=== PATIENT | female | born 1955 | race American Indian/Alaskan Native ===

== ENCOUNTER 2022-04-05 21:45 | Inpatient (IN) | payer MEDICARE ==
[2022-04-05] MEDS ORDERED: IPRATROPIUM 0.02% NEBU 2.5 ML IH ONE ×2 (22:46→22:58)
[2022-04-05] MEDS ORDERED: ALBUTEROL 2.5 MG/3 ML NEBU IH ONE ×2 (22:46→22:56)
[2022-04-05] MEDS ORDERED: MAGNESIUM SULFATE 2 GM/50 ML BAG IV ONE (23:03)
[2022-04-05] MEDS ORDERED: methylPREDNISolone Sod Succinate 125 MG/2 ML INJ IV ONE (23:03)
--- NOTE | 2022-04-05 23:08 | Emergency Department Report ---
ED Shortness of Breath HPI - General Chief Complaint: Dyspnea/Respdistress Stated Complaint: COPD/PRINCESS Time Seen by Provider: 04/05/22 23:00 Source: patient, EMS Mode of arrival: Stretcher Limitations: No Limitations - History of Present Illness Initial Comments: Patient is 66 years old female with history of COPD on oxygen at home 2 L. Patient brought to the emergency room via EMS for evaluation of shortness of breath and difficulty breathing since yesterday. Patient also reported chills but no fever. She denies any chest pain. Patient denied any abdominal pain, nausea or vomiting. Patient found to have an oxygen saturation of 88% on a nonrebreather. Patient improved to 98% after albuterol and Atrovent treatment. MD Complaint: shortness of breath, cough - Related Data Allergies Allergy/AdvReac Type Severity Reaction Status Date / Time aspirin Allergy Hives Verified 04/05/22 22:32 doxycycline Allergy Hives Verified 04/05/22 22:32 Iodinated Contrast Media Allergy Hives Verified 04/05/22 22:32 Penicillins Allergy Hives Verified 04/05/22 22:32 pravastatin Allergy Hives Verified 04/05/22 22:32 Sulfa (Sulfonamide Allergy Hives Verified 04/05/22 22:32 Antibiotics) sulfur hexafluoride Allergy Unknown Verified 04/05/22 22:32 microspheres [From Lum[facility]] ED Review of Systems ROS: Stated complaint: COPD/PRINCESS Other details as noted in HPI Comment: All other systems reviewed and negative Constitutional: chills. denies: fever Respiratory: cough, shortness of breath, SOB with exertion, SOB at rest, wheezing Cardiovascular: denies: chest pain, palpitations Gastrointestinal: denies: abdominal pain, nausea, vomiting, diarrhea Neurological: denies: headache, weakness, numbness, paresthesias, confusion ED Past Medical Hx - Social History Smoking Status: Never Smoker Substance Use Type: None ED Physical Exam - General Limitations: No Limitations General appearance: alert, in distress - Head Head exam: Present: atraumatic, normocephalic, normal inspection - Eye Eye exam: Present: normal appearance - ENT ENT exam: Present: normal exam, normal orophraynx, mucous membranes moist - Neck Neck exam: Present: normal inspection, full ROM. Absent: tenderness, meningismus - Respiratory Respiratory exam: Present: respiratory distress, wheezes, rales, rhonchi, decre ased breath sounds. Absent: accessory muscle use, prolonged expiratory - Cardiovascular Cardiovascular Exam: Present: regular rate, normal rhythm, normal heart sounds - GI/Abdominal GI/Abdominal exam: Present: soft, normal bowel sounds. Absent: distended, tenderness, guarding, rebound, rigid, organomegaly, mass, bruit, pulsatile mass, hernia - Extremities Exam Extremities exam: Present: normal inspection, full ROM, normal capillary refill. Absent: pedal edema, calf tenderness - Back Exam Back exam: Present: normal inspection, full ROM. Absent: CVA tenderness (R), CVA tenderness (L) - Neurological Exam Neurological exam: Present: alert, oriented X3, CN II-XII intact, normal gait, reflexes normal. Absent: motor sensory deficit - Psychiatric Psychiatric exam: Present: normal mood - Skin Skin exam: Present: warm, intact, normal color ED Course Vital Signs 04/05/22 04/05/22 04/05/22 22:33 22:37 22:54 Temperature 97.8 F Pulse Rate 79 Pulse Rate [ 80 84 Bilateral] Respiratory 24 Rate Respiratory 24 28 H Rate [Bilateral ] Blood Pressure 179/59 O2 Sat by Pulse 93 Oximetry 04/05/22 04/05/22 04/05/22 22:57 22:59 23:01 Temperature Pulse Rate 80 79 Pulse Rate [ Bilateral] Respiratory 17 20 Rate Respiratory Rate [Bilateral ] Blood Pressure 157/49 O2 Sat by Pulse 96 100 95 Oximetry 04/05/22 04/05/22 04/06/22 23:30 23:33 00:01 Temperature Pulse Rate 79 77 81 Pulse Rate [ Bilateral] Respiratory 17 20 20 Rate Respiratory Rate [Bilateral ] Blood Pressure 143/67 143/67 130/58 O2 Sat by Pulse 86 91 91 Oximetry 04/06/22 00:31 Temperature Pulse Rate 84 Pulse Rate [ Bilateral] Respiratory 24 Rate Respiratory Rate [Bilateral ] Blood Pressure 152/73 O2 Sat by Pulse 89 Oximetry ED Medical Decision Making - Lab Data Result diagrams: 04/05/22 23:20 04/05/22 23:20 - EKG Data -: EKG Interpreted by [place] - Radiology Data Radiology results: report reviewed - Medical Decision Making Patient is 66 years old female with history of COPD on oxygen at home 2 L. Patient brought to the emergency room via EMS for evaluation of shortness of breath and difficulty breathing since yesterday. Patient also reported chills but no fever. She denies any chest pain. Patient denied any abdominal pain, nausea or vomiting. Patient found to have an oxygen saturation of 88% on a nonrebreather. Patient improved to 98% after albuterol and Atrovent treatment. Patient received albuterol, Atrovent, Solu-Medrol and magnesium sulfate. Patient also received Lasix 60 IV. Chest x-ray showed pulmonary edema. Labs reviewed and showed a BNP of 5555. I discussed the patient with Dr. Rivas, he agreed to admit the patient to the medical service for further management. Critical Care Time: Yes Critical care time in (mins) excluding proc time.: 35 Critical care attestation.: If time is entered above; I have spent that time in minutes in the direct care of this critically ill patient, excluding procedure time. ED Disposition Clinical Impression: Acute exacerbation of CHF (congestive heart failure), Acute exacerbation of COPD with asthma Disposition: 09 ADMITTED INPATIENT Is pt being admited?: Yes Condition: Stable
[2022-04-05 23:37] LABS: Hematocrit 24.1 % (30.3-42.9); Hemoglobin 7.7 gm/dl (10.1-14.3); Mean Corpuscular HGB Conc 32 % (30-34); Mean Corpuscular Volume 93 fl (79-97); Platelet Count 194 K/mm3 (140-440); Red Blood Count 2.58 M/mm3 (3.65-5.03); Red Cell Distribution Width 18.4 % (13.2-15.2)
--- NOTE | 2022-04-05 23:45 | XRay Report ---
CHEST 1 VIEW INDICATION / CLINICAL INFORMATION: Dyspnea. COMPARISON: None available. FINDINGS: SUPPORT DEVICES: None. HEART / MEDIASTINUM: Mild cardiomegaly. LUNGS / PLEURA: Underpenetrated study with central vascular prominence and bilateral interstitial str anding in the perihilar regions more prevalent on the left. Bilateral hemidiaphragms are partially in distinct. BONES: No significant osseous abnormality. ADDITIONAL FINDINGS: No significant additional findings. IMPRESSION: 1. Mild CHF not excluded. Signer Name: Uriel Purcell II, MD Signed: 04/05/2022 11:40 PM Workstation Name: [id number]
[2022-04-05 23:48] LABS: INR 1.03 (0.87-1.13)
[2022-04-05 23:49] LABS: Partial Thromboplastin Time 27.5 Sec. (24.2-36.6)
[2022-04-05 23:59] LABS: Alanine Aminotransferase 21 units/L (7-56); Albumin 3.9 g/dL (3.9-5)
[2022-04-06 00:10] LABS: Bilirubin,Direct < 0.2 mg/dL (0-0.2); Calcium 9.1 mg/dL (8.4-10.2)
[2022-04-06] MEDS ORDERED: FUROSEMIDE 40 MG/4 ML INJ IV ONE (00:59)
[2022-04-06] MEDS ORDERED: MORPHINE 4 MG/1 ML INJ IV PRN (01:59)
[2022-04-06] MEDS ORDERED: MORPHINE 2 MG/1 ML INJ IV PRN (01:59)
[2022-04-06] MEDS ORDERED: ALBUTEROL 2.5 MG/3 ML NEBU IH PRN (01:59)
[2022-04-06] MEDS ORDERED: ONDANSETRON 4 MG/2 ML INJ IV PRN (01:59)
[2022-04-06] MEDS ORDERED: ACETAMINOPHEN 325 MG TAB PO PRN (01:59)
--- NOTE | 2022-04-06 02:06 | History and Physical Report ---
History of Present Illness Date of examination: 04/06/22 Date of admission: 04/06/22 Chief complaint: Shortness of breath Respiratory distress History of present illness: 66 years old female with history of COPD on oxygen at home 2 L was brought to the emergency room via EMS for evaluation of shortness of breath and difficulty breathing since yesterday. Patient also reported chills but no fever. She denies any chest pain. Patient denied any abdominal pain, nausea or vomiting. Patient found to have an oxygen saturation of 88% on a nonrebreather. Patient improved to 98% after albuterol and Atrovent treatment. In the emergency room patient is found to have acute CHF exacerbation and COPD exacerbation. Patient proBNP is 5551. Chest x-ray shows CHF. Also patient BUN is 26 creatinine 2.1 so going to admit the patient and put the patient on CHF pathway Past History Past Medical History: COPD, hypertension Past Surgical History: No surgical history Social history: no significant social history Family history: hypertension Medications and Allergies Allergies Allergy/AdvReac Type Severity Reaction Status Date / Time aspirin Allergy Hives Verified 04/05/22 22:32 doxycycline Allergy Hives Verified 04/05/22 22:32 Iodinated Contrast Media Allergy Hives Verified 04/05/22 22:32 Penicillins Allergy Hives Verified 04/05/22 22:32 pravastatin Allergy Hives Verified 04/05/22 22:32 Sulfa (Sulfonamide Allergy Hives Verified 04/05/22 22:32 Antibiotics) sulfur hexafluoride Allergy Unknown Verified 04/05/22 22:32 microspheres [From Lumason] Review of Systems All systems: negative Cardiovascular: orthopnea, shortness of breath, dyspnea on exertion Respiratory: shortness of breath, dyspnea on exertion Exam - Constitutional Vitals: Temp Pulse Resp BP Pulse Ox 97.8 F 81 20 138/78 94 04/05/22 22:33 04/06/22 01:31 04/06/22 01:31 04/06/22 01:31 04/06/22 01:31 - Respiratory Respiratory: bilateral: rales HEART Score - HEART Score Troponin: Troponin T 0.019 ng/mL (0.00-0.029) 04/05/22 23:20 Results - Labs CBC & Chem 7: 04/05/22 23:20 04/05/22 23:20 Labs: Laboratory Last Values WBC 7.0 K/mm3 (4.5-11.0) 04/05/22 23:20 RBC 2.58 M/mm3 (3.65-5.03) L 04/05/22 23:20 Hgb 7.7 gm/dl (10.1-14.3) L 04/05/22 23:20 Hct 24.1 % (30.3-42.9) L 04/05/22 23:20 MCV 93 fl (79-97) 04/05/22 23:20 MCH 30 pg (28-32) 04/05/22 23:20 MCHC 32 % (30-34) 04/05/22 23:20 RDW 18.4 % (13.2-15.2) H 04/05/22 23:20 Plt Count 194 K/mm3 (140-440) 04/05/22 23:20 Seg Neutrophils % Clinical Geneticist 04/05/22 23:20 PT 14.7 Sec. (12.2-14.9) 04/05/22 23:20 INR 1.03 (0.87-1.13) 04/05/22 23:20 APTT 27.5 Sec. (24.2-36.6) 04/05/22 23:20 Sodium 138 mmol/L (137-145) 04/05/22 23:20 Potassium 5.0 mmol/L (3.6-5.0) 04/05/22 23:20 Chloride 103.4 mmol/L (98-107) 04/05/22 23:20 Carbon Dioxide 22 mmol/L (22-30) 04/05/22 23:20 Anion Gap 18 mmol/L 04/05/22 23:20 BUN 26 mg/dL (7-17) H 04/05/22 23:20 Creatinine 2.1 mg/dL (0.6-1.2) H 04/05/22 23:20 Estimated GFR 23 ml/min 04/05/22 23:20 BUN/Creatinine Ratio 12 % 04/05/22 23:20 Glucose 277 mg/dL (65-100) H 04/05/22 23:20 Lactic Acid 0.90 mmol/L (0.7-2.0) 04/05/22 23:20 Calcium 9.1 mg/dL (8.4-10.2) 05/31/22 23:20 Total Bilirubin 0.60 mg/dL (0.1-1.2) 04/05/22 23:20 Direct Bilirubin < 0.2 mg/dL (0-0.2) 04/05/22 23:20 Indirect Bilirubin 0.4 mg/dL 04/05/22 23:20 AST 13 units/L (5-40) 04/05/22 23:20 ALT 21 units/L (7-56) 04/05/22 23:20 Alkaline Phosphatase 64 units/L (35-129) 04/05/22 23:20 Troponin T 0.019 ng/mL (0.00-0.029) 04/05/22 23:20 NT-Pro-B Natriuret Pep 5551 pg/mL (0-900) H 04/05/22 23:20 Total Protein 6.5 g/dL (6.3-8.2) 04/05/22 23:20 Albumin 3.9 g/dL (3.9-5) 04/05/22 23:20 Albumin/Globulin Ratio 1.5 % 04/05/22 23:20 - Imaging and Cardiology Chest x-ray: report reviewed Assessment and Plan VTE prophylaxis?: Chemical Plan of care discussed with patient/family: Yes - Patient Problems (1) Acute exacerbation of CHF (congestive heart failure) Status: Acute Plan to address problem: Admit the patient to the medical telemetry. Oxygen via nasal cannula 3 L/min. DuoNeb by nebulizer every 4 hours. Fluid restriction. Daily weight. Lasix 40 mg IV daily. Maintain input output. Echocardiogram. Consult cardiology if needed (2) Acute exacerbation of COPD with asthma Status: Acute Plan to address problem: Oxygen via nasal cannula 3 L/min. DuoNeb by nebulizer every 4 hours. Albuterol via nebulizer every 4 hours as needed (3) Hypertension Status: Acute Plan to address problem: Hydralazine 10 mg IV every 6 hours as needed. We continue the home medication (4) JESSICA (acute kidney injury) Status: Acute Plan to address problem: Avoid nephrotoxic drug. Renally dose medication. We consulted nephrology for evaluation. Recheck BMP in the morning (5) DVT prophylaxis Status: Acute Plan to address problem: Heparin 5000 units subcu every 12 hours for DVT prophylaxis Pepcid 20 mg IV every 12 hours for GI prophylaxis. Patient is a full code
[2022-04-06 02:50] LABS: Basophils % (Manual) 0 % (0.0-1.8); Eosinophils % (Manual) 0 % (0.0-4.3); Monocytes % (Manual) 0 % (0.0-7.3); Total Cells Counted 100
[2022-04-06 02:51] LABS: Anisocytosis 1+; Hypochromasia 1+
[2022-04-06 02:52] LABS: Crenated RBC Few; Ovalocytes Few
[2022-04-06 02:53] LABS: Platelet Estimate Consistent w Auto
[2022-04-06] MEDS ORDERED: IPRATROPIUM 0.02% NEBU 2.5 ML IH ONE (03:13)
[2022-04-06] MEDS: IPRATROPIUM/ALBUTEROL SULFATE 3 ML AMPUL.NEB IH SCH ×4 (03:15→20:34)
[2022-04-06] MEDS ORDERED: FUROSEMIDE 40 MG/4 ML INJ IV SCH ×2 (06:00→10:00)
[2022-04-06 08:31] LABS: Iron 20 ug/dL (37-170); Total Iron Binding Capacity 200 mcg/dL (250-450)
[2022-04-06] MEDS: HEPARIN 5,000 UNIT/1 ML VIAL SUB-Q SCH ×2 (09:04→21:35)
[2022-04-06] MEDS: FAMOTIDINE 20 MG/2 ML INJ IV SCH (09:04)
[2022-04-06] MEDS: amLODIPine 10 MG TAB PO SCH (09:05)
[2022-04-06] MEDS: hydrALAZINE 20 MG/1 ML INJ IV PRN (09:08)
--- NOTE | 2022-04-06 09:08 | Electrocardiograph Report ---
[facility] Test Date: 2022-04-06 Test Time: 01:18:24 Pat Name: CHAPARRITA LOPEZ Department: Room: A459 1 Gender: F Nursing Associate: HARRISON : 1955 Requested By: CELIO GARG Order Number: [id number] Reading MD: Lonnie Szymanski Measurements Intervals [place] Rate: 81 P: 33 AK: 132 QRS: 50 QRSD: 72 T: QT: 432 QTc: 505 Interpretive Statements Sinus rhythm Multiple ventricular premature complexes Probable left atrial enlargement No previous ECG available for comparison Electronically Signed On 04-06-2022 9:07:52 EDT by Lonnie Szymanski
--- NOTE | 2022-04-06 11:06 | Event Note ---
Date: 04/06/22 Patient was evaluated this morning, she was found to be hemodynamically stable. #Acute on chronic heart failure - Continue CHF exacerbation protocol: Telemetry, Strict I/O, monitor urine output every shift, daily weights, afterload reduction, low-sodium diet, and fluid restriction of approximately 1.5 mL/day, IV Lasix 40 mg daily (reduced in the setting of JESSICA) - Supplemental oxygen: 3 L nasal cannula - ProBNP on admission: 5551 - Pending TTE to evaluate EF/cardiac function - Continue to monitor #Acute COPD exacerbationruled out Patient denies increased sputum, change in sputum color, and she endorses being compliant with her medications #Acute on chronic hypoxic respiratory failureimproving - etiology: Likely secondary to acute heart failure exacerbation - baseline oxygen requirements: 2 L nasal cannula - supplemental oxygen: 3 L nasal cannula - Continue protocol: continue pulse oximetry, wean oxygen as tolerated, ordered incentive spirometry and educated patient on how to use it and its importance. Pending coronavirus PCR to rule out possible infectious etiology - Walk test: Can perform closer to discharge - continue to monitor #JESSICA on possible CKD stage 4 secondary to vasomotor nephropathy Creatinine 2.1 (baseline unknown). Patient endorses being referred to a fish liver sorter after her most recent hospitalization at [facility]. Likely secondary to cardiorenal syndrome Holding PASQUALE inhibitor's, ARB's, and nephrotoxic drugs. Renally dose meds. Consider nephrology consult if creatinine worsens. Continue to monitor. #Hypertension - home medications: Unknown - current medications: Amlodipine 10 mg daily - SBP goal <160 and DBP goal <90 while inpatient - continue to monitor #Iron deficiency anemia Hemoglobin 7.7 Iron 20, TIBC 200, ferritin 324.8. Will initiate IV iron repletion x2 after resolution of heart failure exacerbation. We will refer patient to general farmworker for possible colonoscopy upon discharge. #Morbid obesity #Weight loss counseling #Exercise counseling - BMI 35.4 - Counseled patient on the importance of weight loss, incorporating exercise, and dietary changes (lean meats, fresh fruits and vegetables, and water intake). Patient expresses understanding. - Time: +15 min #Coordination of CARE time: 30 minutes. Total visit time equals 30 or more minutes with greater than 50% spent [id number] on coordination of care and counseling. #Advanced care planning -Disease education conducted, care plan discussed, diagnoses discussed, prognosis discussed, and patient acknowledges understanding with care plan -Time: +30 min
--- NOTE | 2022-04-06 12:34 | Consultation ---
History of Present Illness - Reason for Consult Consult date: 04/06/22 acute renal failure - History of Present Illness This is a 66 year old female who presented to the hospital with a chief co mplaint of shortness of breath. Patient was found to be Hypoxic with oxygen levels in the 80's. CXR done showed CHF changes. Patient was admitted for CHF and COPD management. Serum creatinine on admission was 2.1. Baseline serum creatinine unknown. We are being consulted for management of this patient's ARF. Patient currently off floor in testing and therefore was not seen. Past History Past Medical History: COPD, hypertension Past Surgical History: No surgical history Social history: no significant social history Family history: hypertension Medications and Allergies Allergies Allergy/AdvReac Type Severity Reaction Status Date / Time aspirin Allergy Hives Verified 04/05/22 22:32 doxycycline Allergy Hives Verified 04/05/22 22:32 Iodinated Contrast Media Allergy Hives Verified 04/05/22 22:32 Penicillins Allergy Hives Verified 04/05/22 22:32 pravastatin Allergy Hives Verified 04/05/22 22:32 Sulfa (Sulfonamide Allergy Hives Verified 04/05/22 22:32 Antibiotics) sulfur hexafluoride Allergy Unknown Verified 04/05/22 22:32 microspheres [From [facility]] Active Meds: Active Medications Acetaminophen (Acetaminophen 325 Mg Tab) 650 mg PO Q4H PRN PRN Reason: Pain MILD(1-3)/Fever >100.5/HUBER Albuterol (Albuterol 2.5 Mg/3 Ml Nebu) 2.5 mg IH Q3HRT PRN PRN Reason: Shortness Of Breath Albuterol/Ipratropium (Ipratropium/Albuterol Sulfate 3 Ml Ampul.Neb) 1 ampul IH Q6HRT [facility] Last Admin: 04/06/22 09:02 Dose: 1 ampul Amlodipine Besylate (Amlodipine 10 Mg Tab) 10 mg PO QDAY [facility] Last Admin: 04/06/22 09:05 Dose: 10 mg Famotidine (Famotidine 20 Mg/2 Ml Inj) 20 mg IV QAM [facility] Last Admin: 04/06/22 09:04 Dose: 20 mg Furosemide (Furosemide 40 Mg/4 Ml Inj) 40 mg IV QDAY [facility] Last Admin: 04/06/22 09:04 Dose: 40 mg Heparin Sodium (Porcine) (Heparin 5,000 Unit/1 Ml Vial) 5,000 unit SUB-Q Q12HR [facility] Last Admin: 04/06/22 09:04 Dose: 5,000 unit Hydralazine HCl (Hydralazine 20 Mg/1 Ml Inj) 10 mg IV Q6H PRN PRN Reason: Blood Pressure Last Admin: 04/06/22 09:08 Dose: 10 mg Morphine Sulfate (Morphine 2 Mg/1 Ml Inj) 2 mg IV Q4H PRN PRN Reason: Pain, Moderate (4-6) Morphine Sulfate (Morphine 4 Mg/1 Ml Inj) 4 mg IV Q4H PRN PRN Reason: Pain , Severe (7-10) Ondansetron HCl (Ondansetron 4 Mg/2 Ml Inj) 4 mg IV Q8H PRN PRN Reason: Nausea And Vomiting Sodium Chloride (Sodium Chloride 0.9% 10 Ml Flush Syringe) 10 ml IV BID [facility] Last Admin: 04/06/22 09:09 Dose: 10 ml Sodium Chloride (Sodium Chloride 0.9% 10 Ml Flush Syringe) 10 ml IV PRN PRN PRN Reason: LINE FLUSH Exam - Vital Signs Vital signs: Vital Signs Temp Pulse Resp BP Pulse Ox 97.8 F 79 24 179/59 93 04/05/22 22:33 04/05/22 22:33 04/05/22 22:33 04/05/22 22:33 04/05/22 22:33 Results - Lab Results 04/05/22 23:20 04/05/22 23:20 Most recent lab results Calcium 9.1 mg/dL (8.4-10.2) 04/05/22 23:20 Assessment and Plan Assessment: Acute Renal Failure, questionable underlying CKD CHF COPD Anemia Plan: No new renal labs noted for today. Serum creatinine 2.1 yesterday. Baseline serum creatinine unknown. Obtain renal ultrasound to rule out obstruction Obtain urine lytes, protein and eosinophils CHF- On Lasix 40 mg IV QD. Echo today. Iron is low at 20, start Ferrous Gluconate 324 mg po TID Avoid nephrotoxic agents Obtain daily weights Monitor I/O's daily Monitor renal function closely Plan of care reviewed by Dr. Mejia
[2022-04-06] MEDS: FERROUS GLUCONATE 324 MG TAB PO SCH ×2 (15:36→22:09)
[2022-04-06] MEDS: INSULIN LISPRO 100 UNIT/ML SUB-Q SCH (23:17)
[2022-04-07] MEDS: IPRATROPIUM/ALBUTEROL SULFATE 3 ML AMPUL.NEB IH SCH ×4 (02:21→20:40)
[2022-04-07 04:55] LABS: Basophils # (Auto) 0.1 K/mm3 (0.0-0.1); Basophils % (Auto) 0.6 % (0.0-1.8); Eosinophils # (Auto) 0.1 K/mm3 (0.0-0.4); Eosinophils % (Auto) 1.3 % (0.0-4.3); Hematocrit 22.3 % (30.3-42.9); Hemoglobin 7.2 gm/dl (10.1-14.3); Lymphocytes # (Auto) 1.1 K/mm3 (1.2-5.4); Lymphocytes % (Auto) 13.3 % (13.4-35.0); Mean Corpuscular HGB Conc 32 % (30-34); Mean Corpuscular Volume 92 fl (79-97); Monocytes # (Auto) 0.7 K/mm3 (0.0-0.8); Platelet Count 195 K/mm3 (140-440); Red Blood Count 2.43 M/mm3 (3.65-5.03); Red Cell Distribution Width 18.5 % (13.2-15.2)
[2022-04-07 05:06] LABS: Calcium 9.1 mg/dL (8.4-10.2)
[2022-04-07] MEDS ORDERED: SODIUM FERRIC GLUCON/SUCRO 125 MG in SODIUM CHLORIDE 0.9% 100 ML IV ONE (08:30)
--- NOTE | 2022-04-07 09:05 | Progress Note ---
Assessment and Plan Acute Renal Failure, questionable underlying CKD CHF COPD Anemia Plan: slowly rising Cr, no UOP was recorded Baseline serum creatinine unknown. Obtain renal ultrasound to rule out obstruction-pending Obtain urine lytes, protein and eosinophils-pending Iron is low at 20, cont Ferrous Gluconate 324 mg po TID Avoid nephrotoxic agents Obtain daily weights Monitor I/O's daily Monitor renal function closely Subjective Date of service: 04/07/22 Principal diagnosis: renal failure Interval history: no overnight events, remains on oxygen Objective - Vital Signs Vital signs: Vital Signs - 12hr 04/07/22 04/07/22 04/07/22 00:59 02:00 04:26 Temperature 98.7 F Pulse Rate 71 Pulse Rate [ 72 Bilateral] Respiratory 20 Rate Respiratory 20 Rate [Bilateral ] Blood Pressure 159/50 O2 Sat by Pulse 91 92 Oximetry 04/07/22 04/07/22 07:36 08:08 Temperature 98.6 F Pulse Rate 66 Pulse Rate [ Bilateral] Respiratory 18 Rate Respiratory Rate [Bilateral ] Blood Pressure 143/47 O2 Sat by Pulse 90 93 Oximetry - General Appearance General appearance: well-developed, well-nourished EENT: ATNC, PERRL Respiratory: Present: Decreased Breath Sounds Cardiology: regular, S1S2 Gastrointestinal: normal Integumentary: no rash Neurologic: no focal deficit, no asterixis Musculoskeletal: other (edema in BLE) Psychiatric: cooperative - Lab 04/07/22 04:12 04/07/22 04:12 Most recent lab results Calcium 9.1 mg/dL (8.4-10.2) 04/07/22 04:12 Phosphorus 4.10 mg/dL (2.5-4.5) 04/07/22 04:12 Medications & Allergies - Medications Allergies/Adverse Reactions: Allergies aspirin Allergy (Verified 04/05/22 22:32) Hives doxycycline Allergy (Verified 04/05/22 22:32) Hives Iodinated Contrast Media Allergy (Verified 04/05/22 22:32) Hives Penicillins Allergy (Verified 04/05/22 22:32) Hives pravastatin Allergy (Verified 04/05/22 22:32) Hives Sulfa (Sulfonamide Antibiotics) Allergy (Verified 04/05/22 22:32) Hives sulfur hexafluoride microspheres [From [facility]] Allergy (Verified 04/05/22 22:32) Unknown Home Medications: Home Medications Medication Instructions Recorded Confirmed Last Taken Type Clopidogrel [Plavix] 75 mg PO QDAY 04/06/22 04/07/22 Unknown History Escitalopram [Lexapro] 10 mg PO DAILY 04/06/22 04/07/22 Unknown History ISOSORBIDE MONOnitrate [Imdur ER] 30 mg PO DAILY 04/06/22 04/07/22 Unknown History Montelukast [Singulair] 10 mg PO HS 04/06/22 04/07/22 Unknown History NIFEdipine [Nifedipine ER] 90 mg PO DAILY 04/06/22 04/07/22 Unknown History Topiramate [Topamax] 25 mg PO DAILY 04/06/22 04/07/22 Unknown History hydrALAZINE [Apresoline TAB] 100 mg PO DAILY 04/06/22 04/07/22 Unknown History Albuterol Mdi (or & Nicu Only) 2 puff IH QID PRN 04/07/22 04/07/22 Unknown History [ProAir HFA Inhaler] Insulin Degludec [Tresiba 36 units SQ QHS 04/07/22 04/07/22 Unknown History Flextouch U-100] Active Medications: Generic Name Dose Route Start Last Admin Trade Name Freq PRN Reason Stop Dose Admin Acetaminophen 650 mg 04/06/22 01:59 Acetaminophen 325 Mg Tab PO Q4H PRN Pain MILD(1-3)/Fever >100.5/HUBER Albuterol 2.5 mg 04/06/22 01:59 Albuterol 2.5 Mg/3 Ml Nebu IH Q3HRT PRN Shortness Of Breath Albuterol/Ipratropium 1 ampul 04/06/22 02:00 04/07/22 08:08 Ipratropium/Albuterol Sulfate 3 Ml Ampul.Neb IH 1 ampul Q6HRT DENISE Administration Amlodipine Besylate 10 mg 04/06/22 10:00 04/06/22 09:05 Amlodipine 10 Mg Tab PO 10 mg QDAY DENISE Administration Famotidine 20 mg 04/06/22 10:00 04/06/22 09:04 Famotidine 20 Mg/2 Ml Inj IV 20 mg QAM DENISE Administration Heparin Sodium (Porcine) 5,000 unit 04/07/22 08:00 Heparin 5,000 Unit/1 Ml Vial SUB-Q Q8HR [facility] Hydralazine HCl 10 mg 04/06/22 02:08 04/06/22 09:08 Hydralazine 20 Mg/1 Ml Inj IV 10 mg Q6H PRN Administration Blood Pressure Ferric Sodium Gluconate 110 mls @ 100 mls/hr 04/07/22 08:30 Complex 125 mg/ Sodium IV 04/07/22 09:35 Chloride ONCE ONE Insulin Human Lispro 0 unit 04/06/22 23:15 04/06/22 23:17 Insulin Lispro 100 Unit/Ml SUB-Q 6 unit ACHS DENISE Administration Protocol Morphine Sulfate 2 mg 04/06/22 01:59 Morphine 2 Mg/1 Ml Inj IV Q4H PRN Pain, Moderate (4-6) Morphine Sulfate 4 mg 04/06/22 01:59 Morphine 4 Mg/1 Ml Inj IV Q4H PRN Pain , Severe (7-10) Ondansetron HCl 4 mg 04/06/22 01:59 Ondansetron 4 Mg/2 Ml Inj IV Q8H PRN Nausea And Vomiting Sodium Chloride 10 ml 04/06/22 10:00 04/06/22 21:35 Sodium Chloride 0.9% 10 Ml Flush Syringe IV 10 ml BID DENISE Administration Sodium Chloride 10 ml 04/06/22 01:59 Sodium Chloride 0.9% 10 Ml Flush Syringe IV PRN PRN LINE FLUSH
[2022-04-07] MEDS: FAMOTIDINE 20 MG/2 ML INJ IV SCH (10:49)
[2022-04-07] MEDS: amLODIPine 10 MG TAB PO SCH (10:49)
[2022-04-07] MEDS: HEPARIN 5,000 UNIT/1 ML VIAL SUB-Q SCH ×3 (10:50→21:46)
[2022-04-07] MEDS: INSULIN LISPRO 100 UNIT/ML SUB-Q SCH ×4 (10:50→22:01)
--- NOTE | 2022-04-07 11:40 | Progress Note ---
Assessment and Plan Assessment and plan: #Acute on chronic diastolic heart failure - Continue CHF exacerbation protocol: Telemetry, Strict I/O, monitor urine output every shift, daily weights, afterload reduction, low-sodium diet, and fluid restriction of approximately 1.5 mL/day, IV Lasix 40 mg daily - Supplemental oxygen: 3 L nasal cannula - ProBNP on admission: 5551 - TTE revealing EF 60-65% with normal-sized LV, normal LV systolic function, mild to moderate concentric LVH, mild diastolic dysfunction, and RVSP is 47 mmHg. - Continue to monitor #Acute COPD exacerbationruled out Patient denies increased sputum, change in sputum color, and she endorses being compliant with her medications #Acute on chronic hypoxic respiratory failureresolved - etiology: Likely secondary to acute heart failure exacerbation - baseline oxygen requirements: 2 L nasal cannula - supplemental oxygen: 2L nasal cannula - Continue protocol: continue pulse oximetry, wean oxygen as tolerated, ordered incentive spirometry and educated patient on how to use it and its importance. Pending coronavirus PCR to rule out possible infectious etiology - Walk test: Can perform closer to discharge - continue to monitor #CKD stage IV #JESSICA on CKD stage IVruled out Creatinine 2.1-->2.3 (creatinine was 2.24 on 03/28/2022 at [facility]). Nephrology consulted; appreciate recs Continue to monitor. #Hypertension - home medications: Unknown - current medications: Amlodipine 10 mg daily - SBP goal <160 and DBP goal <90 while inpatient - continue to monitor #Iron deficiency anemia Hemoglobin 7.7 Iron 20, TIBC 200, ferritin 324.8. Starting IV iron infusion daily x 2 days. We will refer patient to heat pump installer for possible colonoscopy upon discharge. #Morbid obesity #Weight loss counseling #Exercise counseling - BMI 35.4 - Counseled patient on the importance of weight loss, incorporating exercise, and dietary changes (lean meats, fresh fruits and vegetables, and water intake). Patient expresses understanding. - Time: +15 min #Advanced care planning -Disease education conducted, care plan discussed, diagnoses discussed, prognosis discussed, and patient acknowledges understanding with care plan -Time: +30 min Disposition Plan: Continue medical management Total Time Spent with Patient (Minutes): 45 min History Interval history: No acute events overnight. Hospitalist Physical - Constitutional Vitals: Temp Pulse Resp BP Pulse Ox 98.6 F 69 20 143/47 93 04/07/22 07:36 04/07/22 08:21 04/07/22 08:21 04/07/22 07:36 04/07/22 08:08 General appearance: Present: mild distress, obese - EENT Eyes: Present: PERRL, EOM intact ENT: hearing intact, clear oral mucosa, dentition normal - Neck Neck: Present: supple, normal ROM - Respiratory Respiratory effort: normal Respiratory: bilateral: wheezing - Cardiovascular Rhythm: regular Heart Sounds: Present: S1 & S2 - Extremities Extremities: no ischemia, pulses intact, pulses symmetrical, No edema, normal temperature, normal color Peripheral Pulses: within normal limits - Abdominal General gastrointestinal: soft, non-tender, non-distended, normal bowel sounds - Integumentary Integumentary: Present: clear, warm, dry - Psychiatric Psychiatric: appropriate mood/affect, cooperative - Neurologic Neurologic: CNII-XII intact, moves all extremities - Allied Health Allied health notes reviewed: nursing HEART Score - HEART Score Troponin: Troponin T 0.011 ng/mL (0.00-0.029) 04/06/22 01:56 Results - Labs CBC & Chem 7: 04/07/22 04:12 04/07/22 04:12 Labs: Laboratory Last Values WBC 8.1 K/mm3 (4.5-11.0) 04/07/22 04:12 RBC 2.43 M/mm3 (3.65-5.03) L 04/07/22 04:12 Hgb 7.2 gm/dl (10.1-14.3) L 04/07/22 04:12 Hct 22.3 % (30.3-42.9) L 04/07/22 04:12 MCV 92 fl (79-97) 04/07/22 04:12 MCH 30 pg (28-32) 04/07/22 04:12 MCHC 32 % (30-34) 04/07/22 04:12 RDW 18.5 % (13.2-15.2) H 04/07/22 04:12 Plt Count 195 K/mm3 (140-440) 04/07/22 04:12 Lymph % (Auto) 13.3 % (13.4-35.0) L 04/07/22 04:12 [place] % (Auto) 8.0 % (0.0-7.3) H 04/07/22 04:12 Eos % (Auto) 1.3 % (0.0-4.3) 04/07/22 04:12 Baso % (Auto) 0.6 % (0.0-1.8) 04/07/22 04:12 Lymph # (Auto) 1.1 K/mm3 (1.2-5.4) L 04/07/22 04:12 Davie # (Auto) 0.7 K/mm3 (0.0-0.8) 04/07/22 04:12 Eos # (Auto) 0.1 K/mm3 (0.0-0.4) 04/07/22 04:12 Baso # (Auto) 0.1 K/mm3 (0.0-0.1) 04/07/22 04:12 Add Manual Diff Complete 04/05/22 23:20 Total Counted 100 04/05/22 23:20 Seg Neutrophils % 76.8 % (40.0-70.0) H 04/07/22 04:12 Seg Neuts % (Manual) 97.0 % (40.0-70.0) H 04/05/22 23:20 Band Neutrophils % 0 % 04/05/22 23:20 Lymphocytes % (Manual) 3.0 % (13.4-35.0) L 04/05/22 23:20 Reactive Lymphs % (Man) 0 % 04/05/22 23:20 Monocytes % (Manual) 0 % (0.0-7.3) 04/05/22 23:20 Eosinophils % (Manual) 0 % (0.0-4.3) 04/05/22 23:20 Basophils % (Manual) 0 % (0.0-1.8) 04/05/22 23:20 Metamyelocytes % 0 % 04/05/22 23:20 Myelocytes % 0 % 04/05/22 23:20 Promyelocytes % 0 % 04/05/22 23:20 Blast Cells % 0 % 04/05/22 23:20 Nucleated RBC % Not Reportable 04/05/22 23:20 Seg Neutrophils # 6.2 K/mm3 (1.8-7.7) 04/07/22 04:12 Seg Neutrophils # Man 6.8 K/mm3 (1.8-7.7) 04/05/22 23:20 Band Neutrophils # 0.0 K/mm3 04/05/22 23:20 Lymphocytes # (Manual) 0.2 K/mm3 (1.2-5.4) L 04/05/22 23:20 Abs React Lymphs (Man) 0.0 K/mm3 04/05/22 23:20 Monocytes # (Manual) 0.0 K/mm3 (0.0-0.8) 04/05/22 23:20 Eosinophils # (Manual) 0.0 K/mm3 (0.0-0.4) 04/05/22 23:20 Basophils # (Manual) 0.0 K/mm3 (0.0-0.1) 04/05/22 23:20 Metamyelocytes # 0.0 K/mm3 04/05/22 23:20 Myelocytes # 0.0 K/mm3 04/05/22 23:20 Promyelocytes # 0.0 K/mm3 04/05/22 23:20 Blast Cells # 0.0 K/mm3 04/05/22 23:20 WBC Morphology Not Reportable 04/05/22 23:20 Hypersegmented Neuts Not Reportable 04/05/22 23:20 Hyposegmented Neuts Not Reportable 04/05/22 23:20 Hypogranular Neuts Not Reportable 04/05/22 23:20 Smudge Cells Not Reportable 04/05/22 23:20 Toxic Granulation Not Reportable 04/05/22 23:20 Toxic Vacuolation Not Reportable 04/05/22 23:20 Dohle Bodies Not Reportable 04/05/22 23:20 Pelger-Huet Anomaly Not Reportable 04/05/22 23:20 Chen Rods Not Reportable 04/05/22 23:20 Platelet Estimate Consistent w auto 04/05/22 23:20 Clumped Platelets Not Reportable 04/05/22 23:20 Plt Clumps, EDTA Not Reportable 04/05/22 23:20 Large Platelets Not Reportable 04/05/22 23:20 Giant Platelets Not Reportable 04/05/22 23:20 Platelet Satelliting Not Reportable 04/05/22 23:20 Plt Morphology Comment Not Reportable 04/05/22 23:20 RBC Morphology Not Reportable 04/05/22 23:20 Dimorphic RBCs Not Reportable 04/05/22 23:20 Polychromasia Not Reportable 04/05/22 23:20 Hypochromasia 1+ 04/05/22 23:20 Poikilocytosis Not Reportable 04/05/22 23:20 Anisocytosis 1+ 04/05/22 23:20 Microcytosis Not Reportable 04/05/22 23:20 Macrocytosis Not Reportable 04/05/22 23:20 Spherocytes Not Reportable 04/05/22 23:20 Pappenheimer Bodies Not Reportable 04/05/22 23:20 Sickle Cells Not Reportable 04/05/22 23:20 Target Cells Not Reportable 04/05/22 23:20 Tear Drop Cells Not Reportable 04/05/22 23:20 Ovalocytes Few 04/05/22 23:20 Helmet Cells Not Reportable 04/05/22 23:20 [place] Bodies Not Reportable 04/05/22 23:20 [place] Rings Not Reportable 04/05/22 23:20 Phillip Cells Not Reportable 04/05/22 23:20 Bite Cells Not Reportable 04/05/22 23:20 Crenated Cell Few 04/05/22 23:20 Elliptocytes Not Reportable 04/05/22 23:20 Acanthocytes (Spur) Not Reportable 04/05/22 23:20 Rouleaux Not Reportable 04/05/22 23:20 Hemoglobin C Crystals Not Reportable 04/05/22 23:20 Schistocytes Not Reportable 04/05/22 23:20 Malaria parasites Not Reportable 04/05/22 23:20 Abraham Bodies Not Reportable 04/05/22 23:20 Hem Pathologist Commnt No 04/05/22 23:20 PT 14.7 Sec. (12.2-14.9) 04/05/22 23:20 INR 1.03 (0.87-1.13) 04/05/22 23:20 APTT 27.5 Sec. (24.2-36.6) 04/05/22 23:20 Sodium 139 mmol/L (137-145) 04/07/22 04:12 Potassium 4.8 mmol/L (3.6-5.0) 04/07/22 04:12 Chloride 104.4 mmol/L (98-107) 04/07/22 04:12 Carbon Dioxide 24 mmol/L (22-30) 04/07/22 04:12 Anion Gap 15 mmol/L 04/07/22 04:12 BUN 40 mg/dL (7-17) H 04/07/22 04:12 Creatinine 2.3 mg/dL (0.6-1.2) H 04/07/22 04:12 Estimated GFR 26 ml/min 04/07/22 04:12 BUN/Creatinine Ratio 17 % 04/07/22 04:12 Glucose 192 mg/dL (65-100) H 04/07/22 04:12 POC Glucose 340 mg/dL (70-105) H 04/06/22 21:52 Lactic Acid 0.90 mmol/L (0.7-2.0) 04/05/22 23:20 Calcium 9.1 mg/dL (8.4-10.2) 04/07/22 04:12 Phosphorus 4.10 mg/dL (2.5-4.5) 04/07/22 04:12 Iron 20 ug/dL (37-170) L 04/06/22 01:56 TIBC 200 mcg/dL (250-450) L 04/06/22 01:56 Ferritin 324.8 ng/mL (10.0-200.0) H 04/06/22 01:56 Total Bilirubin 0.60 mg/dL (0.1-1.2) 04/05/22 23:20 Direct Bilirubin < 0.2 mg/dL (0-0.2) 04/05/22 23:20 Indirect Bilirubin 0.4 mg/dL 04/05/22 23:20 AST 13 units/L (5-40) 04/05/22 23:20 ALT 21 units/L (7-56) 04/05/22 23:20 Alkaline Phosphatase 64 units/L (35-129) 04/05/22 23:20 Troponin T 0.011 ng/mL (0.00-0.029) 04/06/22 01:56 NT-Pro-B Natriuret Pep 5551 pg/mL (0-900) H 04/05/22 23:20 Total Protein 6.5 g/dL (6.3-8.2) 04/05/22 23:20 Albumin 3.9 g/dL (3.9-5) 04/05/22 23:20 Albumin/Globulin Ratio 1.5 % 04/05/22 23:20 SARS-CoV-2 (PCR) Negative (Negative) 04/06/22 13:45 Microbiology: Microbiology 04/06/22 00:37 Peripheral/Venous Blood Culture - Preliminary NO GROWTH AFTER 24 HOURS 04/06/22 00:33 Peripheral/Venous Blood Culture - Preliminary NO GROWTH AFTER 24 HOURS Active Medications - Current Medications Current Medications: Generic Name Dose Route Start Last Admin Trade Name Freq PRN Reason Stop Dose Admin Acetaminophen 650 mg 04/06/22 01:59 Acetaminophen 325 Mg Tab PO Q4H PRN Pain MILD(1-3)/Fever >100.5/HUBER Albuterol 2.5 mg 04/06/22 01:59 Albuterol 2.5 Mg/3 Ml Nebu IH Q3HRT PRN Shortness Of Breath Albuterol/Ipratropium 1 ampul 04/06/22 02:00 04/07/22 08:08 Ipratropium/Albuterol Sulfate 3 Ml Ampul.Neb IH 1 ampul Q6HRT DENISE Administration Amlodipine Besylate 10 mg 04/06/22 10:00 04/07/22 10:49 Amlodipine 10 Mg Tab PO 10 mg QDAY DENISE Administration Famotidine 20 mg 04/06/22 10:00 04/07/22 10:49 Famotidine 20 Mg/2 Ml Inj IV 20 mg QAM DENISE Administration Heparin Sodium (Porcine) 5,000 unit 04/07/22 08:00 04/07/22 10:50 Heparin 5,000 Unit/1 Ml Vial SUB-Q 5,000 unit Q8HR DENISE Administration Hydralazine HCl 10 mg 04/06/22 02:08 04/06/22 09:08 Hydralazine 20 Mg/1 Ml Inj IV 10 mg Q6H PRN Administration Blood Pressure Insulin Human Lispro 0 unit 04/06/22 23:15 04/07/22 10:50 Insulin Lispro 100 Unit/Ml SUB-Q 2 unit ACHS DENISE Administration Protocol Morphine Sulfate 2 mg 04/06/22 01:59 Morphine 2 Mg/1 Ml Inj IV Q4H PRN Pain, Moderate (4-6) Morphine Sulfate 4 mg 04/06/22 01:59 Morphine 4 Mg/1 Ml Inj IV Q4H PRN Pain , Severe (7-10) Ondansetron HCl 4 mg 04/06/22 01:59 Ondansetron 4 Mg/2 Ml Inj IV Q8H PRN Nausea And Vomiting Sodium Chloride 10 ml 04/06/22 10:00 04/07/22 10:56 Sodium Chloride 0.9% 10 Ml Flush Syringe IV 10 ml BID DENISE Administration Sodium Chloride 10 ml 04/06/22 01:59 Sodium Chloride 0.9% 10 Ml Flush Syringe IV PRN PRN LINE FLUSH
--- NOTE | 2022-04-07 11:42 | Ultrasound Report ---
ULTRASOUND RENAL INDICATION / CLINICAL INFORMATION: renal failure. COMPARISON: None available. FINDINGS: RIGHT KIDNEY: Length = 11.6 cm. - Echogenicity: Mildly echogenic. - Parenchymal Thickness: Normal. - Hydronephrosis: None. - Cyst / Mass: Multiple simple appearing cysts, the largest measuring 1.5 cm within the upper pole. - Stones: None seen. LEFT KIDNEY: Length = 11.7 cm. - Echogenicity: Mildly echogenic. - Parenchymal Thickness: Normal. - Hydronephrosis: Mild caliectasis - Cyst / Mass: Mildly hyperechoic midpole mass measuring 2.5 x 2.7 x 4.1 cm. - Stones: None seen. URINARY BLADDER: Distended. No significant abnormality. FREE FLUID: None. ADDITIONAL FINDINGS: None. IMPRESSION: 1. Mild left caliectasis. Hyperechoic left midpole mass measuring 4.1 cm. 2. 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 3. Simple right renal cyst. Scribed by: Marie James RDMS, RVT, PARISHKS Scribed: 04/07/2022 9:44 AM I have reviewed the images, agree with this report, and edited this report as needed. Signer Name: Curtis Flor MD Signed: 04/07/2022 11:37 AM Workstation Name: [id number]
[2022-04-07] MEDS ORDERED: LOSARTAN 25 MG TAB PO SCH (12:00)
[2022-04-07] MEDS ORDERED: FUROSEMIDE 40 MG/4 ML INJ IV SCH (12:00)
--- NOTE | 2022-04-07 14:26 | Cat Scan Report ---
CT CHEST WITHOUT CONTRAST INDICATION / CLINICAL INFORMATION: Evaluate for pulmonary edema. TECHNIQUE: Axial CT images were obtained through the chest without contrast. [facility] CT dose reduction for ALARA by means of automated exposure control. COMPARISON: None available. FINDINGS: HEART: Mildly enlarged. CORONARY ARTERY CALCIFICATION: Present -- Moderate. THORACIC AORTA: Severe atherosclerotic calcification without acute abnormality. MEDIASTINUM / JEFF: No significant abnormality. PLEURA: Moderate right pleural effusion with small left pleural effusion. LUNGS: Moderately developed bilateral interstitial edema. ADDITIONAL FINDINGS: None. UPPER ABDOMEN: No significant abnormality. SKELETAL SYSTEM: No significant abnormality. IMPRESSION: Moderate cardiopulmonary edema with bilateral pleural effusions, as above Signer Name: Alexander Boogie MD Signed: 04/07/2022 2:21 PM Workstation Name: [email or web address]
[2022-04-07] MEDS ORDERED: FUROSEMIDE 40 MG/4 ML INJ IV ONE (18:30)
[2022-04-08] MEDS: IPRATROPIUM/ALBUTEROL SULFATE 3 ML AMPUL.NEB IH SCH ×4 (02:31→20:32)
[2022-04-08] MEDS: HEPARIN 5,000 UNIT/1 ML VIAL SUB-Q SCH ×3 (05:51→21:51)
[2022-04-08] MEDS: INSULIN LISPRO 100 UNIT/ML SUB-Q SCH ×4 (07:33→21:52)
[2022-04-08] MEDS ORDERED: ALBUTEROL 2.5 MG/3 ML NEBU IH PRN (09:00)
--- NOTE | 2022-04-08 09:40 | Progress Note ---
Assessment and Plan Acute Renal Failure, questionable underlying CKD CHF COPD Anemia Plan: BMP is pending this AM Baseline serum creatinine unknown. renal US is negative for obstruction, however, she had L renal mass. she will need to be evaluated by urology as an outpatient Obtain urine lytes, protein and eosinophils-pending Iron is low at 20, cont Ferrous Gluconate 324 mg po TID Avoid nephrotoxic agents Obtain daily weights Monitor I/O's daily Monitor renal function closely Subjective Date of service: 04/08/22 Principal diagnosis: renal failure Interval history: comfortable. resting in bed Objective - Vital Signs Vital signs: Vital Signs - 12hr 04/07/22 04/07/22 04/07/22 22:00 22:50 23:10 Temperature 97.9 F Pulse Rate 77 Pulse Rate [ Bilateral] Respiratory 18 Rate Respiratory Rate [Bilateral ] Blood Pressure 161/46 Blood Pressure [Left] O2 Sat by Pulse 91 98 96 Oximetry 04/08/22 04/08/22 04/08/22 02:31 02:35 04:00 Temperature 98.9 F Pulse Rate 77 Pulse Rate [ 71 70 Bilateral] Respiratory 18 Rate Respiratory 18 18 Rate [Bilateral ] Blood Pressure Blood Pressure 93/55 [Left] O2 Sat by Pulse 95 Oximetry 04/08/22 04/08/22 04/08/22 04:45 06:10 08:02 Temperature 98.6 F 98.0 F Pulse Rate 83 82 Pulse Rate [ 75 89 Bilateral] Respiratory 18 18 Rate Respiratory 18 20 Rate [Bilateral ] Blood Pressure 171/66 169/64 Blood Pressure [Left] O2 Sat by Pulse 95 99 Oximetry 04/08/22 08:14 Temperature Pulse Rate Pulse Rate [ Bilateral] Respiratory Rate Respiratory Rate [Bilateral ] Blood Pressure Blood Pressure [Left] O2 Sat by Pulse 98 Oximetry - Lab 04/07/22 04:12 04/07/22 04:12 Most recent lab results Calcium 9.1 mg/dL (8.4-10.2) 04/07/22 04:12 Phosphorus 4.10 mg/dL (2.5-4.5) 04/07/22 04:12 Medications & Allergies - Medications Allergies/Adverse Reactions: Allergies aspirin Allergy (Verified 04/05/22 22:32) Hives doxycycline Allergy (Verified 04/05/22 22:32) Hives Iodinated Contrast Media Allergy (Verified 04/05/22 22:32) Hives Penicillins Allergy (Verified 04/05/22 22:32) Hives pravastatin Allergy (Verified 04/05/22 22:32) Hives Sulfa (Sulfonamide Antibiotics) Allergy (Verified 04/05/22 22:32) Hives sulfur hexafluoride microspheres [From Lumason] Allergy (Verified 04/05/22 22:32) Unknown Home Medications: Home Medications Medication Instructions Recorded Confirmed Last Taken Type Clopidogrel [Plavix] 75 mg PO QDAY 04/06/22 04/07/22 Unknown History Escitalopram [Lexapro] 10 mg PO DAILY 04/06/22 04/07/22 Unknown History ISOSORBIDE MONOnitrate [Imdur ER] 30 mg PO DAILY 04/06/22 04/07/22 Unknown History Montelukast [Singulair] 10 mg PO HS 04/06/22 04/07/22 Unknown History NIFEdipine [Nifedipine ER] 90 mg PO DAILY 04/06/22 04/07/22 Unknown History Topiramate [Topamax] 25 mg PO DAILY 04/06/22 04/07/22 Unknown History hydrALAZINE [Apresoline TAB] 100 mg PO DAILY 04/06/22 04/07/22 Unknown History Albuterol Mdi (or & Nicu Only) 2 puff IH QID PRN 04/07/22 04/07/22 Unknown History [ProAir HFA Inhaler] Insulin Degludec [Tresiba 36 units SQ QHS 04/07/22 04/07/22 Unknown History Flextouch U-100] Active Medications: Generic Name Dose Route Start Last Admin Trade Name Freq PRN Reason Stop Dose Admin Acetaminophen 650 mg 04/06/22 01:59 Acetaminophen 325 Mg Tab PO Q4H PRN Pain MILD(1-3)/Fever >100.5/HUBER Albuterol 2.5 mg 04/08/22 09:00 Albuterol 2.5 Mg/3 Ml Nebu IH Q4HRT PRN Shortness Of Breath Albuterol/Ipratropium 1 ampul 04/08/22 14:00 Ipratropium/Albuterol Sulfate 3 Ml Ampul.Neb IH Q6HRT DENISE Arformoterol Tartrate 15 mcg 04/08/22 20:00 Arformoterol 15 Mcg/2 Ml Nebu IH Q12HRT DENISE Budesonide 0.5 mg 04/08/22 20:00 Budesonide 0.5 Mg/2 Ml Nebu IH Q12HRT [facility] Famotidine 20 mg 04/06/22 10:00 04/07/22 10:49 Famotidine 20 Mg/2 Ml Inj IV 20 mg QAM DENISE Administration Furosemide 40 mg 04/08/22 10:00 Furosemide 40 Mg/4 Ml Inj IV BID [facility] Heparin Sodium (Porcine) 5,000 unit 04/07/22 08:00 04/08/22 05:51 Heparin 5,000 Unit/1 Ml Vial SUB-Q 5,000 unit Q8HR DENISE Administration Hydralazine HCl 10 mg 04/06/22 02:08 04/06/22 09:08 Hydralazine 20 Mg/1 Ml Inj IV 10 mg Q6H PRN Administration Blood Pressure Insulin Human Lispro 0 unit 04/06/22 23:15 04/07/22 22:01 Insulin Lispro 100 Unit/Ml SUB-Q 1 unit ACHS [facility] Administration Protocol Losartan Potassium 50 mg 04/08/22 10:00 Losartan 25 Mg Tab PO QDAY [facility] Morphine Sulfate 2 mg 04/06/22 01:59 Morphine 2 Mg/1 Ml Inj IV Q4H PRN Pain, Moderate (4-6) Morphine Sulfate 4 mg 04/06/22 01:59 Morphine 4 Mg/1 Ml Inj IV Q4H PRN Pain , Severe (7-10) Nifedipine 30 mg 04/08/22 10:00 Nifedipine Xl 30 Mg Tab PO QDAY [facility] Ondansetron HCl 4 mg 04/06/22 01:59 Ondansetron 4 Mg/2 Ml Inj IV Q8H PRN Nausea And Vomiting Sodium Chloride 10 ml 04/06/22 10:00 04/07/22 21:47 Sodium Chloride 0.9% 10 Ml Flush Syringe IV 10 ml BID DENISE Administration Sodium Chloride 10 ml 04/06/22 01:59 Sodium Chloride 0.9% 10 Ml Flush Syringe IV PRN PRN LINE FLUSH
[2022-04-08] MEDS ORDERED: NIFEdipine XL 30 MG TAB PO SCH ×2 (10:00→13:57)
[2022-04-08] MEDS: FUROSEMIDE 40 MG/4 ML INJ IV SCH ×2 (10:50→21:51)
[2022-04-08] MEDS: FAMOTIDINE 20 MG/2 ML INJ IV SCH (10:50)
[2022-04-08] MEDS: LOSARTAN 25 MG TAB PO SCH (10:51)
--- NOTE | 2022-04-08 13:58 | Progress Note ---
Assessment and Plan Assessment and plan: #Acute on chronic diastolic heart failure - Continue CHF exacerbation protocol: Telemetry, Strict I/O, monitor urine output every shift, daily weights, afterload reduction, low-sodium diet, and fluid restriction of approximately 1.5 mL/day, IV Lasix 40 mg twice daily - Supplemental oxygen: 5L nasal cannula - ProBNP on admission: 5551 - TTE revealing EF 60-65% with normal-sized LV, normal LV systolic function, mild to moderate concentric LVH, mild diastolic dysfunction, and RVSP is 47 mmHg. - Continue to monitor #Acute COPD exacerbationruled out Patient denies increased sputum, change in sputum color, and she endorses stephanie ng compliant with her medications #Acute on chronic hypoxic respiratory failureacutely worsened #Bilateral pleural effusions - etiology: Secondary to bilateral pleural effusions as visualized on CT chest without contrast - baseline oxygen requirements: 2 L nasal cannula - supplemental oxygen: 5L nasal cannula - Continue protocol: continue pulse oximetry, wean oxygen as tolerated, ordered incentive spirometry and educated patient on how to use it and its importance. Unremarkable coronavirus PCR. - continue to monitor #CKD stage IVimproving #JESSICA on CKD stage IVruled out #Likely cardiorenal syndrome Creatinine 2.1-->2.3--> 2.0 (creatinine was 2.24 on 03/28/2022 at [facility]). Nephrology consulted; appreciate recs Continue to monitor. #Hypertension - home medications: Unknown - current medications: Nifedipine 60 mg daily, losartan 50 mg daily - SBP goal <160 and DBP goal <90 while inpatient - continue to monitor #Iron deficiency anemia Hemoglobin 7.7 Iron 20, TIBC 200, ferritin 324.8. Starting IV iron infusion daily x 2 days. We will refer patient to aviation electronics technician for possible colonoscopy upon discharge. #Morbid obesity #Weight loss counseling #Exercise counseling - BMI 35.4 - Counseled patient on the importance of weight loss, incorporating exercise, and dietary changes (lean meats, fresh fruits and vegetables, and water intake). Patient expresses understanding. - Time: +15 min #Advanced care planning -Disease education conducted, care plan discussed, diagnoses discussed, prognosis discussed, and patient acknowledges understanding with care plan -Time: +30 min Disposition Plan: Continue medical management Total Time Spent with Patient (Minutes): 45 minutes History Interval history: No acute events overnight. Hospitalist Physical - Constitutional Vitals: Temp Pulse Resp BP Pulse Ox 98.0 F 72 18 168/69 99 04/08/22 12:00 04/08/22 12:00 04/08/22 12:00 04/08/22 12:00 04/08/22 12:00 General appearance: Present: mild distress, obese - EENT Eyes: Present: PERRL, EOM intact ENT: hearing intact, clear oral mucosa, dentition normal - Neck Neck: Present: supple, normal ROM - Respiratory Respiratory effort: normal Respiratory: bilateral: rales - Cardiovascular Rhythm: regular Heart Sounds: Present: S1 & S2 - Extremities Extremities: no ischemia, pulses intact, pulses symmetrical, No edema, normal temperature, normal color Peripheral Pulses: within normal limits - Abdominal General gastrointestinal: soft, non-tender, non-distended, normal bowel sounds - Integumentary Integumentary: Present: clear, warm, dry - Psychiatric Psychiatric: appropriate mood/affect, cooperative - Neurologic Neurologic: CNII-XII intact - Allied Health Allied health notes reviewed: nursing HEART Score - HEART Score Troponin: Troponin T 0.011 ng/mL (0.00-0.029) 04/06/22 01:56 Results - Labs CBC & Chem 7: 04/07/22 04:12 04/08/22 10:56 Labs: Laboratory Last Values WBC 8.1 K/mm3 (4.5-11.0) 04/07/22 04:12 RBC 2.43 M/mm3 (3.65-5.03) L 04/07/22 04:12 Hgb 7.2 gm/dl (10.1-14.3) L 04/07/22 04:12 Hct 22.3 % (30.3-42.9) L 04/07/22 04:12 MCV 92 fl (79-97) 04/07/22 04:12 MCH 30 pg (28-32) 04/07/22 04:12 MCHC 32 % (30-34) 04/07/22 04:12 RDW 18.5 % (13.2-15.2) H 04/07/22 04:12 Plt Count 195 K/mm3 (140-440) 04/07/22 04:12 Lymph % (Auto) 13.3 % (13.4-35.0) L 04/07/22 04:12 [place] % (Auto) 8.0 % (0.0-7.3) H 04/07/22 04:12 Eos % (Auto) 1.3 % (0.0-4.3) 04/07/22 04:12 Baso % (Auto) 0.6 % (0.0-1.8) 04/07/22 04:12 Lymph # (Auto) 1.1 K/mm3 (1.2-5.4) L 04/07/22 04:12 [place] # (Auto) 0.7 K/mm3 (0.0-0.8) 04/07/22 04:12 Eos # (Auto) 0.1 K/mm3 (0.0-0.4) 04/07/22 04:12 Baso # (Auto) 0.1 K/mm3 (0.0-0.1) 04/07/22 04:12 Add Manual Diff Complete 04/05/22 23:20 Total Counted 100 04/05/22 23:20 Seg Neutrophils % 76.8 % (40.0-70.0) H 04/07/22 04:12 Seg Neuts % (Manual) 97.0 % (40.0-70.0) H 04/05/22 23:20 Band Neutrophils % 0 % 04/05/22 23:20 Lymphocytes % (Manual) 3.0 % (13.4-35.0) L 04/05/22 23:20 Reactive Lymphs % (Man) 0 % 04/05/22 23:20 Monocytes % (Manual) 0 % (0.0-7.3) 04/05/22 23:20 Eosinophils % (Manual) 0 % (0.0-4.3) 04/05/22 23:20 Basophils % (Manual) 0 % (0.0-1.8) 04/05/22 23:20 Metamyelocytes % 0 % 04/05/22 23:20 Myelocytes % 0 % 04/05/22 23:20 Promyelocytes % 0 % 04/05/22 23:20 Blast Cells % 0 % 04/05/22 23:20 Nucleated RBC % Not Reportable 04/05/22 23:20 Seg Neutrophils # 6.2 K/mm3 (1.8-7.7) 04/07/22 04:12 Seg Neutrophils # Man 6.8 K/mm3 (1.8-7.7) 04/05/22 23:20 Band Neutrophils # 0.0 K/mm3 04/05/22 23:20 Lymphocytes # (Manual) 0.2 K/mm3 (1.2-5.4) L 04/05/22 23:20 Abs React Lymphs (Man) 0.0 K/mm3 04/05/22 23:20 Monocytes # (Manual) 0.0 K/mm3 (0.0-0.8) 04/05/22 23:20 Eosinophils # (Manual) 0.0 K/mm3 (0.0-0.4) 04/05/22 23:20 Basophils # (Manual) 0.0 K/mm3 (0.0-0.1) 04/05/22 23:20 Metamyelocytes # 0.0 K/mm3 04/05/22 23:20 Myelocytes # 0.0 K/mm3 04/05/22 23:20 Promyelocytes # 0.0 K/mm3 04/05/22 23:20 Blast Cells # 0.0 K/mm3 04/05/22 23:20 WBC Morphology Not Reportable 04/05/22 23:20 Hypersegmented Neuts Not Reportable 04/05/22 23:20 Hyposegmented Neuts Not Reportable 04/05/22 23:20 Hypogranular Neuts Not Reportable 04/05/22 23:20 Smudge Cells Not Reportable 04/05/22 23:20 Toxic Granulation Not Reportable 04/05/22 23:20 Toxic Vacuolation Not Reportable 04/05/22 23:20 Dohle Bodies Not Reportable 04/05/22 23:20 Pelger-Huet Anomaly Not Reportable 04/05/22 23:20 Chen Rods Not Reportable 04/05/22 23:20 Platelet Estimate Consistent w auto 04/05/22 23:20 Clumped Platelets Not Reportable 04/05/22 23:20 Plt Clumps, EDTA Not Reportable 04/05/22 23:20 Large Platelets Not Reportable 04/05/22 23:20 Giant Platelets Not Reportable 04/05/22 23:20 Platelet Satelliting Not Reportable 04/05/22 23:20 Plt Morphology Comment Not Reportable 04/05/22 23:20 RBC Morphology Not Reportable 04/05/22 23:20 Dimorphic RBCs Not Reportable 04/05/22 23:20 Polychromasia Not Reportable 04/05/22 23:20 Hypochromasia 1+ 04/05/22 23:20 Poikilocytosis Not Reportable 04/05/22 23:20 Anisocytosis 1+ 04/05/22 23:20 Microcytosis Not Reportable 04/05/22 23:20 Macrocytosis Not Reportable 04/05/22 23:20 Spherocytes Not Reportable 04/05/22 23:20 Pappenheimer Bodies Not Reportable 04/05/22 23:20 Sickle Cells Not Reportable 04/05/22 23:20 Target Cells Not Reportable 04/05/22 23:20 Tear Drop Cells Not Reportable 04/05/22 23:20 Ovalocytes Few 04/05/22 23:20 Helmet Cells Not Reportable 04/05/22 23:20 [place] Bodies Not Reportable 04/05/22 23:20 [place] Rings Not Reportable 04/05/22 23:20 Phillip Cells Not Reportable 04/05/22 23:20 Bite Cells Not Reportable 04/05/22 23:20 Crenated Cell Few 04/05/22 23:20 Elliptocytes Not Reportable 04/05/22 23:20 Acanthocytes (Spur) Not Reportable 04/05/22 23:20 Rouleaux Not Reportable 04/05/22 23:20 Hemoglobin C Crystals Not Reportable 04/05/22 23:20 Schistocytes Not Reportable 04/05/22 23:20 Malaria parasites Not Reportable 04/05/22 23:20 Abraham Bodies Not Reportable 04/05/22 23:20 Hem Pathologist Commnt No 04/05/22 23:20 PT 14.7 Sec. (12.2-14.9) 04/05/22 23:20 INR 1.03 (0.87-1.13) 04/05/22 23:20 APTT 27.5 Sec. (24.2-36.6) 04/05/22 23:20 Sodium 139 mmol/L (137-145) 04/08/22 10:56 Potassium 4.5 mmol/L (3.6-5.0) 04/08/22 10:56 Chloride 102.9 mmol/L (98-107) 04/08/22 10:56 Carbon Dioxide 28 mmol/L (22-30) 04/08/22 10:56 Anion Gap 13 mmol/L 04/08/22 10:56 BUN 31 mg/dL (7-17) H 04/08/22 10:56 Creatinine 2.0 mg/dL (0.6-1.2) H 04/08/22 10:56 Estimated GFR 30 ml/min 04/08/22 10:56 BUN/Creatinine Ratio 16 % 04/08/22 10:56 Glucose 221 mg/dL (65-100) H 04/08/22 10:56 POC Glucose 178 mg/dL (70-105) H 04/08/22 11:57 Lactic Acid 0.90 mmol/L (0.7-2.0) 04/05/22 23:20 Calcium 9.0 mg/dL (8.4-10.2) 04/08/22 10:56 Phosphorus 4.10 mg/dL (2.5-4.5) 04/07/22 04:12 Iron 20 ug/dL (37-170) L 04/06/22 01:56 TIBC 200 mcg/dL (250-450) L 04/06/22 01:56 Ferritin 324.8 ng/mL (10.0-200.0) H 04/06/22 01:56 Total Bilirubin 0.60 mg/dL (0.1-1.2) 04/05/22 23:20 Direct Bilirubin < 0.2 mg/dL (0-0.2) 04/05/22 23:20 Indirect Bilirubin 0.4 mg/dL 04/05/22 23:20 AST 13 units/L (5-40) 04/05/22 23:20 ALT 21 units/L (7-56) 04/05/22 23:20 Alkaline Phosphatase 64 units/L (35-129) 04/05/22 23:20 Troponin T 0.011 ng/mL (0.00-0.029) 04/06/22 01:56 NT-Pro-B Natriuret Pep 5551 pg/mL (0-900) H 04/05/22 23:20 Total Protein 6.5 g/dL (6.3-8.2) 04/05/22 23:20 Albumin 3.9 g/dL (3.9-5) 04/05/22 23:20 Albumin/Globulin Ratio 1.5 % 04/05/22 23:20 Urine Eosinophils None seen (None Seen) 04/06/22 Unknown SARS-CoV-2 (PCR) Negative (Negative) 04/06/22 13:45 Microbiology: Microbiology 04/06/22 00:37 Peripheral/Venous Blood Culture - Preliminary NO GROWTH AFTER 48 HOURS 04/06/22 00:33 Peripheral/Venous Blood Culture - Preliminary NO GROWTH AFTER 48 HOURS Active Medications - Current Medications Current Medications: Generic Name Dose Route Start Last Admin Trade Name Freq PRN Reason Stop Dose Admin Acetaminophen 650 mg 04/06/22 01:59 Acetaminophen 325 Mg Tab PO Q4H PRN Pain MILD(1-3)/Fever >100.5/HUBER Albuterol 2.5 mg 04/08/22 09:00 Albuterol 2.5 Mg/3 Ml Nebu IH Q4HRT PRN Shortness Of Breath Albuterol/Ipratropium 1 ampul 04/08/22 14:00 04/08/22 13:53 Ipratropium/Albuterol Sulfate 3 Ml Ampul.Neb IH 1 ampul Q6HRT DENISE Administration Arformoterol Tartrate 15 mcg 04/08/22 20:00 Arformoterol 15 Mcg/2 Ml Nebu IH Q12HRT DENISE Budesonide 0.5 mg 04/08/22 20:00 Budesonide 0.5 Mg/2 Ml Nebu IH Q12HRT DENISE Famotidine 20 mg 04/06/22 10:00 04/08/22 10:50 Famotidine 20 Mg/2 Ml Inj IV 20 mg QAM DENISE Administration Furosemide 40 mg 04/08/22 10:00 04/08/22 10:50 Furosemide 40 Mg/4 Ml Inj IV 40 mg BID DENISE Administration Heparin Sodium (Porcine) 5,000 unit 04/07/22 08:00 04/08/22 05:51 Heparin 5,000 Unit/1 Ml Vial SUB-Q 5,000 unit Q8HR DENISE Administration Hydralazine HCl 10 mg 04/06/22 02:08 04/06/22 09:08 Hydralazine 20 Mg/1 Ml Inj IV 10 mg Q6H PRN Administration Blood Pressure Insulin Human Lispro 0 unit 04/06/22 23:15 04/07/22 22:01 Insulin Lispro 100 Unit/Ml SUB-Q 1 unit ACHS DENISE Administration Protocol Losartan Potassium 50 mg 04/08/22 10:00 04/08/22 10:51 Losartan 25 Mg Tab PO 50 mg QDAY DENISE Administration Morphine Sulfate 2 mg 04/06/22 01:59 Morphine 2 Mg/1 Ml Inj IV Q4H PRN Pain, Moderate (4-6) Morphine Sulfate 4 mg 04/06/22 01:59 Morphine 4 Mg/1 Ml Inj IV Q4H PRN Pain , Severe (7-10) Nifedipine 30 mg 04/08/22 10:00 04/08/22 10:50 Nifedipine Xl 30 Mg Tab PO 30 mg QDAY DENISE Administration Ondansetron HCl 4 mg 04/06/22 01:59 Ondansetron 4 Mg/2 Ml Inj IV Q8H PRN Nausea And Vomiting Sodium Chloride 10 ml 04/06/22 10:00 04/07/22 21:47 Sodium Chloride 0.9% 10 Ml Flush Syringe IV 10 ml BID DENISE Administration Sodium Chloride 10 ml 04/06/22 01:59 Sodium Chloride 0.9% 10 Ml Flush Syringe IV PRN PRN LINE FLUSH
[2022-04-08] MEDS: ARFORMOTEROL 15 MCG/2 ML NEBU IH SCH (20:32)
[2022-04-08] MEDS: BUDESONIDE 0.5 MG/2 ML NEBU IH SCH (20:32)
[2022-04-09] MEDS: IPRATROPIUM/ALBUTEROL SULFATE 3 ML AMPUL.NEB IH SCH ×4 (03:31→22:01)
[2022-04-09] MEDS: hydrALAZINE 20 MG/1 ML INJ IV PRN (05:25)
[2022-04-09] MEDS: HEPARIN 5,000 UNIT/1 ML VIAL SUB-Q SCH ×3 (05:26→21:30)
[2022-04-09] MEDS: INSULIN LISPRO 100 UNIT/ML SUB-Q SCH ×4 (07:46→21:31)
[2022-04-09 08:13] LABS: Calcium 8.7 mg/dL (8.4-10.2)
[2022-04-09] MEDS: BUDESONIDE 0.5 MG/2 ML NEBU IH SCH ×2 (08:26→22:01)
[2022-04-09] MEDS: ARFORMOTEROL 15 MCG/2 ML NEBU IH SCH ×2 (08:27→22:02)
--- NOTE | 2022-04-09 10:01 | Progress Note ---
Assessment and Plan Acute Renal Failure, questionable underlying CKD CHF COPD Anemia Plan: Cr stable, monitor. Baseline serum creatinine unknown. renal US is negative for obstruction, however, she had L renal mass. she will need to be evaluated by urology as an outpatient Obtain urine lytes, protein and eosinophils-pending Iron is low at 20, cont Ferrous Gluconate 324 mg po TID Avoid nephrotoxic agents Obtain daily weights Monitor I/O's daily Monitor renal function closely Subjective Date of service: 04/09/22 Principal diagnosis: renal failure Interval history: Making urine, NAD. Objective - Exam Narrative Exam: General appearance: Present: mild distress, obese - EENT Eyes: Present: PERRL, EOM intact ENT: hearing intact, clear oral mucosa, dentition normal - Neck Neck: Present: supple, normal ROM - Respiratory Respiratory effort: normal Respiratory: bilateral: rales - Cardiovascular Rhythm: regular Heart Sounds: Present: S1 & S2 - Extremities Extremities: no ischemia, pulses intact, pulses symmetrical, No edema, normal temperature, normal color Peripheral Pulses: within normal limits - Abdominal General gastrointestinal: soft, non-tender, non-distended, normal bowel sounds - Integumentary Integumentary: Present: clear, warm, dry - Psychiatric Psychiatric: appropriate mood/affect, cooperative - Neurologic Neurologic: CNII-XII intact - Allied Health Allied health notes reviewed: nursing - Vital Signs Vital signs: Vital Signs - 12hr 04/09/22 04/09/22 04/09/22 00:15 00:26 04:00 Temperature 97.8 F Pulse Rate 84 86 83 Pulse Rate [ Bilateral] Respiratory 19 Rate Respiratory Rate [Bilateral ] Blood Pressure 155/47 O2 Sat by Pulse 100 Oximetry 04/09/22 04/09/22 04/09/22 04:09 05:25 07:45 Temperature 97.2 F L 98.2 F Pulse Rate 82 82 83 Pulse Rate [ Bilateral] Respiratory 18 20 Rate Respiratory Rate [Bilateral ] Blood Pressure 168/55 168/58 167/49 O2 Sat by Pulse 100 100 Oximetry 04/09/22 04/09/22 08:30 08:46 Temperature Pulse Rate Pulse Rate [ 87 Bilateral] Respiratory Rate Respiratory 20 Rate [Bilateral ] Blood Pressure O2 Sat by Pulse 98 Oximetry - Lab 04/07/22 04:12 04/09/22 07:36 Most recent lab results Calcium 8.7 mg/dL (8.4-10.2) 04/09/22 07:36 Phosphorus 4.10 mg/dL (2.5-4.5) 04/07/22 04:12 Medications & Allergies - Medications Allergies/Adverse Reactions: Allergies aspirin Allergy (Verified 04/05/22 22:32) Hives doxycycline Allergy (Verified 04/05/22 22:32) Hives Iodinated Contrast Media Allergy (Verified 04/05/22 22:32) Hives Penicillins Allergy (Verified 04/05/22 22:32) Hives pravastatin Allergy (Verified 04/05/22 22:32) Hives Sulfa (Sulfonamide Antibiotics) Allergy (Verified 04/05/22 22:32) Hives sulfur hexafluoride microspheres [From Lumason] Allergy (Verified 04/05/22 22:3 2) Unknown Home Medications: Home Medications Medication Instructions Recorded Confirmed Last Taken Type Clopidogrel [Plavix] 75 mg PO QDAY 04/06/22 04/07/22 Unknown History Escitalopram [Lexapro] 10 mg PO DAILY 04/06/22 04/07/22 Unknown History ISOSORBIDE MONOnitrate [Imdur ER] 30 mg PO DAILY 04/06/22 04/07/22 Unknown History Montelukast [Singulair] 10 mg PO HS 04/06/22 04/07/22 Unknown History NIFEdipine [Nifedipine ER] 90 mg PO DAILY 04/06/22 04/07/22 Unknown History Topiramate [Topamax] 25 mg PO DAILY 04/06/22 04/07/22 Unknown History hydrALAZINE [Apresoline TAB] 100 mg PO DAILY 04/06/22 04/07/22 Unknown History Albuterol Mdi (or & Nicu Only) 2 puff IH QID PRN 04/07/22 04/07/22 Unknown History [ProAir HFA Inhaler] Insulin Degludec [Tresiba 36 units SQ QHS 04/07/22 04/07/22 Unknown History Flextouch U-100] Active Medications: Generic Name Dose Route Start Last Admin Trade Name Freq PRN Reason Stop Dose Admin Acetaminophen 650 mg 04/06/22 01:59 Acetaminophen 325 Mg Tab PO Q4H PRN Pain MILD(1-3)/Fever >100.5/HUBER Albuterol 2.5 mg 04/08/22 09:00 Albuterol 2.5 Mg/3 Ml Nebu IH Q4HRT PRN Shortness Of Breath Albuterol/Ipratropium 1 ampul 04/08/22 14:00 04/09/22 08:26 Ipratropium/Albuterol Sulfate 3 Ml Ampul.Neb IH 1 ampul Q6HRT DENISE Administration Arformoterol Tartrate 15 mcg 04/08/22 20:00 04/09/22 08:27 Arformoterol 15 Mcg/2 Ml Nebu IH 15 mcg Q12HRT DENISE Administration Budesonide 0.5 mg 04/08/22 20:00 04/09/22 08:26 Budesonide 0.5 Mg/2 Ml Nebu IH 0.5 mg Q12HRT DENISE Administration Famotidine 20 mg 04/06/22 10:00 04/08/22 10:50 Famotidine 20 Mg/2 Ml Inj IV 20 mg QAM DENISE Administration Furosemide 40 mg 04/08/22 10:00 04/08/22 21:51 Furosemide 40 Mg/4 Ml Inj IV 40 mg BID DENISE Administration Heparin Sodium (Porcine) 5,000 unit 04/07/22 08:00 04/09/22 05:26 Heparin 5,000 Unit/1 Ml Vial SUB-Q 5,000 unit Q8HR DENISE Administration Hydralazine HCl 10 mg 04/06/22 02:08 04/09/22 05:25 Hydralazine 20 Mg/1 Ml Inj IV 10 mg Q6H PRN Administration Blood Pressure Insulin Human Lispro 0 unit 04/06/22 23:15 04/09/22 07:46 Insulin Lispro 100 Unit/Ml SUB-Q Not Given ACHS [facility] Protocol Losartan Potassium 50 mg 04/08/22 10:00 04/08/22 10:51 Losartan 25 Mg Tab PO 50 mg QDAY DENISE Administration Morphine Sulfate 2 mg 04/06/22 01:59 Morphine 2 Mg/1 Ml Inj IV Q4H PRN Pain, Moderate (4-6) Morphine Sulfate 4 mg 04/06/22 01:59 Morphine 4 Mg/1 Ml Inj IV Q4H PRN Pain , Severe (7-10) Nifedipine 60 mg 04/09/22 10:00 Nifedipine Xl 60 Mg Tab PO QDAY DENISE Ondansetron HCl 4 mg 04/06/22 01:59 Ondansetron 4 Mg/2 Ml Inj IV Q8H PRN Nausea And Vomiting Sodium Chloride 10 ml 04/06/22 10:00 04/09/22 05:00 Sodium Chloride 0.9% 10 Ml Flush Syringe IV 10 ml BID DENISE Administration Sodium Chloride 10 ml 04/06/22 01:59 Sodium Chloride 0.9% 10 Ml Flush Syringe IV PRN PRN LINE FLUSH
[2022-04-09] MEDS: FAMOTIDINE 20 MG/2 ML INJ IV SCH (10:19)
[2022-04-09] MEDS: FUROSEMIDE 40 MG/4 ML INJ IV SCH ×2 (10:19→21:30)
[2022-04-09] MEDS: NIFEdipine XL 60 MG TAB PO SCH (10:20)
[2022-04-09] MEDS: LOSARTAN 25 MG TAB PO SCH (10:20)
--- NOTE | 2022-04-09 13:56 | Progress Note ---
Assessment and Plan Assessment and plan: #Acute on chronic diastolic heart failureimproving - Continue CHF exacerbation protocol: Telemetry, Strict I/O, monitor urine output every shift, daily weights, afterload reduction, low-sodium diet, and fluid restriction of approximately 1.5 mL/day, IV Lasix 40 mg twice daily - Supplemental oxygen: 2L nasal cannula - ProBNP on admission: 5551 - TTE revealing EF 60-65% with normal-sized LV, normal LV systolic function, mild to moderate concentric LVH, mild diastolic dysfunction, and RVSP is 47 mmHg. - Continue to monitor #Acute COPD exacerbationruled out Patient denies increased sputum, change in sputum color, and she endorses being compliant with her medications #Acute on chronic hypoxic respiratory failureresolved #Bilateral pleural effusions - etiology: Secondary to bilateral pleural effusions as visualized on CT chest without contrast - baseline oxygen requirements: 2 L nasal cannula - supplemental oxygen: 2L nasal cannula - Continue protocol: continue pulse oximetry, wean oxygen as tolerated, ordered incentive spirometry and educated patient on how to use it and its importance. Unremarkable coronavirus PCR. - continue to monitor #CKD stage IVimproving #JESSICA on CKD stage IVruled out #Likely cardiorenal syndrome Creatinine 2.1-->2.3--> 2.0 (creatinine was 2.24 on 03/28/2022 at [facility]). Nephrology consulted; appreciate recs Continue to monitor. #Hypertension - home medications: Unknown - current medications: Nifedipine 60 mg daily, losartan 50 mg daily - SBP goal <160 and DBP goal <90 while inpatient - continue to monitor #Iron deficiency anemia Hemoglobin 7.7 Iron 20, TIBC 200, ferritin 324.8. Starting IV iron infusion daily x 2 days. 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 #Morbid obesity #Weight loss counseling #Exercise counseling - BMI 35.4 - Counseled patient on the importance of weight loss, incorporating exercise, and dietary changes (lean meats, fresh fruits and vegetables, and water intake). Patient expresses understanding. - Time: +15 min #Advanced care planning -Disease education conducted, care plan discussed, diagnoses discussed, prognosis discussed, and patient acknowledges understanding with care plan -Time: +30 min #Discharge planning - Patient is pending further improvement/resolution of acute on chronic diastolic heart failure. - Case management has been made aware. - Discharge is tentatively 24-48 hours Disposition Plan: Continue medical management Total Time Spent with Patient (Minutes): 45 min History Interval history: No acute events overnight. Hospitalist Physical - Constitutional Vitals: Temp Pulse Resp BP Pulse Ox 98.3 F 81 18 156/50 100 04/09/22 11:41 04/09/22 11:41 04/09/22 11:41 04/09/22 11:41 04/09/22 12:09 General appearance: Present: no acute distress, obese - EENT Eyes: Present: PERRL, EOM intact ENT: hearing intact, clear oral mucosa, dentition normal - Neck Neck: Present: supple, normal ROM - Respiratory Respiratory effort: normal Respiratory: bilateral: diminished (On 2 L nasal cannula (baseline)) - Cardiovascular Rhythm: regular Heart Sounds: Present: S1 & S2 - Extremities Extremities: no ischemia, pulses intact, pulses symmetrical, No edema, normal temperature, normal color Peripheral Pulses: within normal limits - Abdominal General gastrointestinal: soft, non-tender, non-distended, normal bowel sounds - Integumentary Integumentary: Present: clear, warm, dry - Psychiatric Psychiatric: appropriate mood/affect, intact judgment & insight, memory intact, cooperative - Neurologic Neurologic: CNII-XII intact, moves all extremities - Allied Health Allied health notes reviewed: nursing HEART Score - HEART Score Troponin: Troponin T 0.011 ng/mL (0.00-0.029) 04/06/22 01:56 Results - Labs CBC & Chem 7: 04/07/22 04:12 04/09/22 07:36 Labs: Laboratory Last Values WBC 8.1 K/mm3 (4.5-11.0) 04/07/22 04:12 RBC 2.43 M/mm3 (3.65-5.03) L 04/07/22 04:12 Hgb 7.2 gm/dl (10.1-14.3) L 04/07/22 04:12 Hct 22.3 % (30.3-42.9) L 04/07/22 04:12 MCV 92 fl (79-97) 04/07/22 04:12 MCH 30 pg (28-32) 04/07/22 04:12 MCHC 32 % (30-34) 04/07/22 04:12 RDW 18.5 % (13.2-15.2) H 04/07/22 04:12 Plt Count 195 K/mm3 (140-440) 04/07/22 04:12 Lymph % (Auto) 13.3 % (13.4-35.0) L 04/07/22 04:12 Wilson % (Auto) 8.0 % (0.0-7.3) H 04/07/22 04:12 Eos % (Auto) 1.3 % (0.0-4.3) 04/07/22 04:12 Baso % (Auto) 0.6 % (0.0-1.8) 04/07/22 04:12 Lymph # (Auto) 1.1 K/mm3 (1.2-5.4) L 04/07/22 04:12 Wilson # (Auto) 0.7 K/mm3 (0.0-0.8) 04/07/22 04:12 Eos # (Auto) 0.1 K/mm3 (0.0-0.4) 04/07/22 04:12 Baso # (Auto) 0.1 K/mm3 (0.0-0.1) 04/07/22 04:12 Add Manual Diff Complete 04/05/22 23:20 Total Counted 100 04/05/22 23:20 Seg Neutrophils % 76.8 % (40.0-70.0) H 04/07/22 04:12 Seg Neuts % (Manual) 97.0 % (40.0-70.0) H 04/05/22 23:20 Band Neutrophils % 0 % 04/05/22 23:20 Lymphocytes % (Manual) 3.0 % (13.4-35.0) L 04/05/22 23:20 Reactive Lymphs % (Man) 0 % 04/05/22 23:20 Monocytes % (Manual) 0 % (0.0-7.3) 04/05/22 23:20 Eosinophils % (Manual) 0 % (0.0-4.3) 04/05/22 23:20 Basophils % (Manual) 0 % (0.0-1.8) 04/05/22 23:20 Metamyelocytes % 0 % 04/05/22 23:20 Myelocytes % 0 % 04/05/22 23:20 Promyelocytes % 0 % 04/05/22 23:20 Blast Cells % 0 % 04/05/22 23:20 Nucleated RBC % Not Reportable 04/05/22 23:20 Seg Neutrophils # 6.2 K/mm3 (1.8-7.7) 04/07/22 04:12 Seg Neutrophils # Man 6.8 K/mm3 (1.8-7.7) 04/05/22 23:20 Band Neutrophils # 0.0 K/mm3 04/05/22 23:20 Lymphocytes # (Manual) 0.2 K/mm3 (1.2-5.4) L 04/05/22 23:20 Abs React Lymphs (Man) 0.0 K/mm3 04/05/22 23:20 Monocytes # (Manual) 0.0 K/mm3 (0.0-0.8) 04/05/22 23:20 Eosinophils # (Manual) 0.0 K/mm3 (0.0-0.4) 04/05/22 23:20 Basophils # (Manual) 0.0 K/mm3 (0.0-0.1) 04/05/22 23:20 Metamyelocytes # 0.0 K/mm3 04/05/22 23:20 Myelocytes # 0.0 K/mm3 04/05/22 23:20 Promyelocytes # 0.0 K/mm3 04/05/22 23:20 Blast Cells # 0.0 K/mm3 04/05/22 23:20 WBC Morphology Not Reportable 04/05/22 23:20 Hypersegmented Neuts Not Reportable 04/05/22 23:20 Hyposegmented Neuts Not Reportable 04/05/22 23:20 Hypogranular Neuts Not Reportable 04/05/22 23:20 Smudge Cells Not Reportable 04/05/22 23:20 Toxic Granulation Not Reportable 04/05/22 23:20 Toxic Vacuolation Not Reportable 04/05/22 23:20 Dohle Bodies Not Reportable 04/05/22 23:20 Pelger-Huet Anomaly Not Reportable 04/05/22 23:20 Chen Rods Not Reportable 04/05/22 23:20 Platelet Estimate Consistent w auto 04/05/22 23:20 Clumped Platelets Not Reportable 04/05/22 23:20 Plt Clumps, EDTA Not Reportable 04/05/22 23:20 Large Platelets Not Reportable 04/05/22 23:20 Giant Platelets Not Reportable 04/05/22 23:20 Platelet Satelliting Not Reportable 04/05/22 23:20 Plt Morphology Comment Not Reportable 04/05/22 23:20 RBC Morphology Not Reportable 04/05/22 23:20 Dimorphic RBCs Not Reportable 04/05/22 23:20 Polychromasia Not Reportable 04/05/22 23:20 Hypochromasia 1+ 04/05/22 23:20 Poikilocytosis Not Reportable 04/05/22 23:20 Anisocytosis 1+ 04/05/22 23:20 Microcytosis Not Reportable 04/05/22 23:20 Macrocytosis Not Reportable 04/05/22 23:20 Spherocytes Not Reportable 04/05/22 23:20 Pappenheimer Bodies Not Reportable 04/05/22 23:20 Sickle Cells Not Reportable 04/05/22 23:20 Target Cells Not Reportable 04/05/22 23:20 Tear Drop Cells Not Reportable 04/05/22 23:20 Ovalocytes Few 04/05/22 23:20 Helmet Cells Not Reportable 04/05/22 23:20 [place] Bodies Not Reportable 04/05/22 23:20 [place] Rings Not Reportable 04/05/22 23:20 [place] Cells Not Reportable 04/05/22 23:20 Bite Cells Not Reportable 04/05/22 23:20 Crenated Cell Few 04/05/22 23:20 Elliptocytes Not Reportable 04/05/22 23:20 Acanthocytes (Spur) Not Reportable 04/05/22 23:20 Rouleaux Not Reportable 04/05/22 23:20 Hemoglobin C Crystals Not Reportable 04/05/22 23:20 Schistocytes Not Reportable 04/05/22 23:20 Malaria parasites Not Reportable 04/05/22 23:20 Abraham Bodies Not Reportable 04/05/22 23:20 Hem Pathologist Commnt No 04/05/22 23:20 PT 14.7 Sec. (12.2-14.9) 04/05/22 23:20 INR 1.03 (0.87-1.13) 04/05/22 23:20 APTT 27.5 Sec. (24.2-36.6) 04/05/22 23:20 Sodium 142 mmol/L (137-145) 04/09/22 07:36 Potassium 3.9 mmol/L (3.6-5.0) 04/09/22 07:36 Chloride 104.5 mmol/L (98-107) 04/09/22 07:36 Carbon Dioxide 31 mmol/L (22-30) H 04/09/22 07:36 Anion Gap 10 mmol/L 04/09/22 07:36 BUN 28 mg/dL (7-17) H 04/09/22 07:36 Creatinine 2.1 mg/dL (0.6-1.2) H 04/09/22 07:36 Estimated GFR 28 ml/min 04/09/22 07:36 BUN/Creatinine Ratio 13 % 04/09/22 07:36 Glucose 137 mg/dL (65-100) H 04/09/22 07:36 POC Glucose 183 mg/dL (70-105) H 04/09/22 11:39 Lactic Acid 0.90 mmol/L (0.7-2.0) 04/05/22 23:20 Calcium 8.7 mg/dL (8.4-10.2) 04/09/22 07:36 Phosphorus 4.10 mg/dL (2.5-4.5) 04/07/22 04:12 Iron 20 ug/dL (37-170) L 04/06/22 01:56 TIBC 200 mcg/dL (250-450) L 04/06/22 01:56 Ferritin 324.8 ng/mL (10.0-200.0) H 04/06/22 01:56 Total Bilirubin 0.60 mg/dL (0.1-1.2) 04/05/22 23:20 Direct Bilirubin < 0.2 mg/dL (0-0.2) 04/05/22 23:20 Indirect Bilirubin 0.4 mg/dL 04/05/22 23:20 AST 13 units/L (5-40) 04/05/22 23:20 ALT 21 units/L (7-56) 04/05/22 23:20 Alkaline Phosphatase 64 units/L (35-129) 04/05/22 23:20 Troponin T 0.011 ng/mL (0.00-0.029) 04/06/22 01:56 NT-Pro-B Natriuret Pep 5551 pg/mL (0-900) H 04/05/22 23:20 Total Protein 6.5 g/dL (6.3-8.2) 04/05/22 23:20 Albumin 3.9 g/dL (3.9-5) 04/05/22 23:20 Albumin/Globulin Ratio 1.5 % 04/05/22 23:20 Urine Eosinophils None seen (None Seen) 04/06/22 Unknown SARS-CoV-2 (PCR) Negative (Negative) 04/06/22 13:45 Microbiology: Microbiology 04/06/22 00:37 Peripheral/Venous Blood Culture - Preliminary NO GROWTH AFTER 72 HOURS 04/06/22 00:33 Peripheral/Venous Blood Culture - Preliminary NO GROWTH AFTER 72 HOURS Alanis/IV: Voiding Method Bedside Commode Active Medications - Current Medications Current Medications: Generic Name Dose Route Start Last Admin Trade Name Freq PRN Reason Stop Dose Admin Acetaminophen 650 mg 04/06/22 01:59 Acetaminophen 325 Mg Tab PO Q4H PRN Pain MILD(1-3)/Fever >100.5/HUBER Albuterol 2.5 mg 04/08/22 09:00 Albuterol 2.5 Mg/3 Ml Nebu IH Q4HRT PRN Shortness Of Breath Albuterol/Ipratropium 1 ampul 04/08/22 14:00 04/09/22 08:26 Ipratropium/Albuterol Sulfate 3 Ml Ampul.Neb IH 1 ampul Q6HRT DENISE Administration Arformoterol Tartrate 15 mcg 04/08/22 20:00 04/09/22 08:27 Arformoterol 15 Mcg/2 Ml Nebu IH 15 mcg Q12HRT DENISE Administration Budesonide 0.5 mg 04/08/22 20:00 04/09/22 08:26 Budesonide 0.5 Mg/2 Ml Nebu IH 0.5 mg Q12HRT DENISE Administration Famotidine 20 mg 04/06/22 10:00 04/09/22 10:19 Famotidine 20 Mg/2 Ml Inj IV 20 mg QAM DENISE Administration Furosemide 40 mg 04/08/22 10:00 04/09/22 10:19 Furosemide 40 Mg/4 Ml Inj IV 40 mg BID DENISE Administration Heparin Sodium (Porcine) 5,000 unit 04/07/22 08:00 04/09/22 13:28 Heparin 5,000 Unit/1 Ml Vial SUB-Q 5,000 unit Q8HR DENISE Administration Hydralazine HCl 10 mg 04/06/22 02:08 04/09/22 05:25 Hydralazine 20 Mg/1 Ml Inj IV 10 mg Q6H PRN Administration Blood Pressure Insulin Human Lispro 0 unit 04/06/22 23:15 04/09/22 12:21 Insulin Lispro 100 Unit/Ml SUB-Q 2 unit ACHS DENISE Administration Protocol Losartan Potassium 50 mg 04/08/22 10:00 04/09/22 10:20 Losartan 25 Mg Tab PO 50 mg QDAY DENISE Administration Morphine Sulfate 2 mg 04/06/22 01:59 Morphine 2 Mg/1 Ml Inj IV Q4H PRN Pain, Moderate (4-6) Morphine Sulfate 4 mg 04/06/22 01:59 Morphine 4 Mg/1 Ml Inj IV Q4H PRN Pain , Severe (7-10) Nifedipine 60 mg 04/09/22 10:00 04/09/22 10:20 Nifedipine Xl 60 Mg Tab PO 60 mg QDAY DENISE Administration Ondansetron HCl 4 mg 04/06/22 01:59 Ondansetron 4 Mg/2 Ml Inj IV Q8H PRN Nausea And Vomiting Sodium Chloride 10 ml 04/06/22 10:00 04/09/22 10:25 Sodium Chloride 0.9% 10 Ml Flush Syringe IV 10 ml BID DENISE Administration Sodium Chloride 10 ml 04/06/22 01:59 Sodium Chloride 0.9% 10 Ml Flush Syringe IV PRN PRN LINE FLUSH
[2022-04-10] MEDS: HEPARIN 5,000 UNIT/1 ML VIAL SUB-Q SCH (05:41)
[2022-04-10] MEDS: hydrALAZINE 20 MG/1 ML INJ IV PRN (05:42)
[2022-04-10] MEDS: IPRATROPIUM/ALBUTEROL SULFATE 3 ML AMPUL.NEB IH SCH ×2 (05:54→08:59)
[2022-04-10 07:58] VITALS: BP 158/60
[2022-04-10] MEDS: INSULIN LISPRO 100 UNIT/ML SUB-Q SCH (08:00)
[2022-04-10 08:19] LABS: Calcium 9.1 mg/dL (8.4-10.2)
[2022-04-10] MEDS: ARFORMOTEROL 15 MCG/2 ML NEBU IH SCH (09:07)
[2022-04-10] MEDS: BUDESONIDE 0.5 MG/2 ML NEBU IH SCH (09:07)
--- NOTE | 2022-04-10 09:09 | Discharge Summary ---
Providers - Providers Date of Admission: 04/06/22 01:59 Attending physician: DANNY ALLEN 04/06/22 02:07 Consult to Physician [CONS] Routine Comment: Consulting Provider: MAYA BATEMAN Physician Instructions: Reason For Exam: terrance Primary care physician: MAXIM KELLY Hospitalization Condition: Stable Disposition: 30 STILL A PATIENT Exam - Constitutional Vitals: Temp Pulse Resp BP Pulse Ox 98.8 F 83 18 158/60 97 04/10/22 07:36 04/10/22 07:36 04/10/22 07:36 04/10/22 07:36 04/10/22 07:36 Plan Follow up with: MAXIM KELLY MD [Primary Care Provider] - 7 Days
[2022-04-10] MEDS: FAMOTIDINE 20 MG/2 ML INJ IV SCH (10:46)
[2022-04-10] MEDS: FUROSEMIDE 40 MG/4 ML INJ IV SCH (10:46)
[2022-04-10] MEDS: LOSARTAN 25 MG TAB PO SCH (10:47)
[2022-04-10] MEDS: NIFEdipine XL 60 MG TAB PO SCH (10:47)
--- NOTE | 2022-04-10 12:30 | Progress Note ---
Assessment and Plan Acute Renal Failure, questionable underlying CKD CHF COPD Anemia Plan: Cr stable, monitor. Baseline serum creatinine unknown. renal US is negative for obstruction, however, she had L renal mass. she will need to be evaluated by urology as an outpatient Obtain urine lytes, protein and eosinophils-pending Iron is low at 20, cont Ferrous Gluconate 324 mg po TID Avoid nephrotoxic agents Obtain daily weights Monitor I/O's daily Monitor renal function closely Subjective Date of service: 04/10/22 Principal diagnosis: renal failure Interval history: Making urine, NAD. Objective - Exam Narrative Exam: General appearance: Present: mild distress, obese - EENT Eyes: Present: PERRL, EOM intact ENT: hearing intact, clear oral mucosa, dentition normal - Neck Neck: Present: supple, normal ROM - Respiratory Respiratory effort: normal Respiratory: bilateral: rales - Cardiovascular Rhythm: regular Heart Sounds: Present: S1 & S2 - Extremities Extremities: no ischemia, pulses intact, pulses symmetrical, No edema, normal temperature, normal color Peripheral Pulses: within normal limits - Abdominal General gastrointestinal: soft, non-tender, non-distended, normal bowel sounds - Integumentary Integumentary: Present: clear, warm, dry - Psychiatric Psychiatric: appropriate mood/affect, cooperative - Neurologic Neurologic: CNII-XII intact - Allied Health Allied health notes reviewed: nursing - Vital Signs Vital signs: Vital Signs - 12hr 04/10/22 04/10/22 04/10/22 00:45 04:00 05:42 Temperature 98.3 F Pulse Rate 85 87 83 Pulse Rate [ Bilateral] Respiratory 20 Rate Respiratory Rate [Bilateral ] Blood Pressure 173/69 173/69 O2 Sat by Pulse 99 Oximetry 04/10/22 04/10/22 04/10/22 07:36 08:55 09:12 Temperature 98.8 F Pulse Rate 83 Pulse Rate [ 85 Bilateral] Respiratory 18 Rate Respiratory 18 Rate [Bilateral ] Blood Pressure 158/60 O2 Sat by Pulse 97 100 Oximetry 04/10/22 04/10/22 10:47 11:26 Temperature Pulse Rate 83 Pulse Rate [ Bilateral] Respiratory Rate Respiratory Rate [Bilateral ] Blood Pressure 158/60 O2 Sat by Pulse 98 Oximetry - Lab 04/07/22 04:12 04/10/22 07:36 Most recent lab results Calcium 9.1 mg/dL (8.4-10.2) 04/10/22 07:36 Phosphorus 4.10 mg/dL (2.5-4.5) 04/07/22 04:12 Medications & Allergies - Medications Allergies/Adverse Reactions: Allergies aspirin Allergy (Verified 04/05/22 22:32) Hives doxycycline Allergy (Verified 04/05/22 22:32) Hives Iodinated Contrast Media Allergy (Verified 04/05/22 22:32) Hives Penicillins Allergy (Verified 04/05/22 22:32) Hives pravastatin Allergy (Verified 04/05/22 22:32) Hives Sulfa (Sulfonamide Antibiotics) Allergy (Verified 04/05/22 22:32) Hives sulfur hexafluoride microspheres [From Lumason] Allergy (Verified 04/05/22 22:32) Unknown Home Medications: Home Medications Medication Instructions Recorded Confirmed Last Taken Type Clopidogrel [Plavix] 75 mg PO QDAY 04/06/22 04/07/22 Unknown History Escitalopram [Lexapro] 10 mg PO DAILY 04/06/22 04/07/22 Unknown History ISOSORBIDE MONOnitrate [Imdur ER] 30 mg PO DAILY 04/06/22 04/07/22 Unknown History Montelukast [Singulair] 10 mg PO HS 04/06/22 04/07/22 Unknown History NIFEdipine [Nifedipine ER] 90 mg PO DAILY 04/06/22 04/07/22 Unknown History Topiramate [Topamax] 25 mg PO DAILY 04/06/22 04/07/22 Unknown History hydrALAZINE [Apresoline TAB] 100 mg PO DAILY 04/06/22 04/07/22 Unknown History Albuterol Mdi (or & Nicu Only) 2 puff IH QID PRN 04/07/22 04/07/22 Unknown History [ProAir HFA Inhaler] Insulin Degludec [Tresiba 36 units SQ QHS 04/07/22 04/07/22 Unknown History Flextouch U-100]
== END 2022-04-10 12:19 | disposition home health service (06) | DRG 291 ==
LOC: ED 21:45 → 4A 04-06 01:59
PROVIDERS: ADMIT Hospitalist; ATTEND Internal Medicine
DX: I13.0 Hypertensive heart and chronic kidney disease with heart failure and stage 1 through stage 4 chronic kidney disease, or unspecified chronic kidney disease (principal); I50.33 Acute on chronic diastolic (congestive) heart failure; J96.21 Acute and chronic respiratory failure with hypoxia; N18.4 Chronic kidney disease, stage 4 (severe); D64.9 Anemia, unspecified; Z20.822 Contact with and (suspected) exposure to COVID-19; D50.9 Iron deficiency anemia, unspecified; E66.01 Morbid (severe) obesity due to excess calories; Z88.2 Allergy status to sulfonamides; Z88.1 Allergy status to other antibiotic agents; Z88.6 Allergy status to analgesic agent; Z88.0 Allergy status to penicillin; Z88.8 Allergy status to other drugs, medicaments and biological substances; Z91.041 Radiographic dye allergy status; Z71.3 Dietary counseling and surveillance; Z68.35 Body mass index [BMI] 35.0-35.9, adult
CPT/HCPCS: 36415; 71045; 71250; 76770; 80048; 80076; 82140; 82728; 82962; 83550; 83880; 84100; 84484; 85007; 85025; 85610; 85730; 87040; 89050; 93005; 93306; 94640; 94644; 94760; G0378; J3490; Q9967; C8929; J0360; J1644; J1815; J1940; J2916; J2930; J3475; U0003